=== PATIENT | female | born 1990 | race Caucasian/White ===

== ENCOUNTER 2018-07-25 20:56 | Emergency (ER) | payer OTHER ==
[2018-07-25] MEDS ORDERED: [UNRECOGNIZED DRUG - CODE] MC (23:15)
[2018-07-25] MEDS ORDERED: FOLI1TAB24 PO (23:15)
[2018-07-26] MEDS ORDERED: CEPH-507 PO (00:56)
== END 2018-07-25 21:56 | disposition left against medical advice (07) ==
LOC: ER FS 20:58
DX: O26.899 Other specified pregnancy related conditions, unspecified trimester (principal); R10.9 Unspecified abdominal pain; R11.0 Nausea; Z3A.00 Weeks of gestation of pregnancy not specified

== ENCOUNTER 2018-07-25 22:36 | Emergency (ER) | payer BC, OTHER ==
[~2018-07-25] VITALS: Ht 162.6 cm; Wt 68.0 kg
--- NOTE | 2018-07-25 23:10 | NUR ---
pt informed ultrasound is not available at this time.
[2018-07-25] MEDS ORDERED: FOLI1TAB24 PO (23:15)
[2018-07-25] MEDS ORDERED: [UNRECOGNIZED DRUG - CODE] MC (23:15)
[2018-07-25 23:35] LABS: BASOPHILS % (AUTO) 0 % (0-10); EOSINOPHILS # (AUTO) 0.1 10^3/uL (0.0-0.3); EOSINOPHILS % (AUTO) 1 % (0-10); HEMATOCRIT 38 % (35-52); HEMOGLOBIN 13.3 G/DL (11.5-16.0); LYMPHOCYTES # (AUTO) 3.9 X 10^3 (1.0-4.0); LYMPHOCYTES % (AUTO) 34 % (12-44); MEAN CORPUSCULAR HEMOGLOBIN 32 PG (25-34); MEAN CORPUSCULAR HGB CONC 35 G/DL (32-36); MEAN CORPUSCULAR VOLUME 90 FL (80-99); MEAN PLATELET VOLUME 9.8 FL (7.4-10.4); MONOCYTES # (AUTO) 0.5 X 10^3 (0.0-1.0); MONOCYTES % (AUTO) 5 % (0-12); NEUTROPHILS % (AUTO) 60 % (42-75); PLATELET COUNT 336 10^3/uL (130-400); RED CELL DISTRIBUTION WIDTH 11.9 % (10.0-14.5); WHITE BLOOD COUNT 11.6 10^3/uL (4.3-11.0)
[2018-07-26 00:12] LABS: COLOR,URINE YELLOW
[2018-07-26 00:13] LABS: BACTERIA,URINE LARGE /HPF; BILIRUBIN,URINE NEGATIVE (NEGATIVE); CLARITY,URINE CLEAR; GLUCOSE, URINE (UA) NEGATIVE (NEGATIVE); KETONES,URINE NEGATIVE (NEGATIVE); LEUKOCYTE ESTERASE ,URINE 2+ (NEGATIVE); NITRITE,URINE NEGATIVE (NEGATIVE); PH,URINE 6 (5-9); PROTEIN,URINE NEGATIVE (NEGATIVE); SQUAMOUS EPITHELIAL CELL,UR 0-2 /HPF; UROBILINOGEN,URINE NORMAL (NORMAL)
[2018-07-26] MEDS ORDERED: CEPHALEXIN 250 MG (KEFLEX) CAP PO ONE (00:45)
--- NOTE | 2018-07-26 00:51 | ED GU-Female ---
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 approx. 6 weeks Nursing Sepsis Screen: No Definite Risk Source: patient Exam Limitations: no limitations History of Present Illness Date Seen by Provider: Jul 26, 2018 Time Seen by Provider: 23:08 Initial Comments This 28-year-old at approximately 6 weeks gestational age with an LMP of June 19 presents to the emergency room with pelvic pain and cramping for 3 days. She denies any vaginal bleeding. She spoke with a nurse from Dr. Urbano' s office who recommended she be seen in the ER. She is presently on progesterone and folic acid for the past 3 days because of history of multiple miscarriages. She is afebrile. She denies any odorous or colored vaginal discharge. Allergies and Home Medications Allergies Uncoded Allergies: tape (Adverse Reaction, Unknown, 07/25/18) Home Medications Cephalexin 500 Mg Capsule, 500 MG PO TID Prescribed by: NABIL WELCH on 07/26/18 0056 Patient Home Medication List Home Medication List Reviewed: Yes Review of Systems Review of Systems Constitutional: no symptoms reported EENTM: no symptoms reported Respiratory: no symptoms reported Cardiovascular: no symptoms reported Gastrointestinal: see HPI Genitourinary: see HPI : Yes LMP: Jun 19, 2018 Musculoskeletal: no symptoms reported Skin: no symptoms reported Psychiatric/Neurological: No Symptoms Reported Endocrine: No Symptoms Reported Past Dwerbzi-Jgqlcd-Ueiern Hx Past Med/Social Hx: Reviewed Nursing Past Med/Soc Hx Patient Social History Alcohol Use: Denies Use Recreational Drug Use: No Smoking Status: Never a Smoker 2nd Hand Smoke Exposure: No Recent Foreign Travel: No Contact w/Someone Who Travel: No Recent Infectious Disease Expo: No Recent Hopitalizations: No Immunizations Up To Date Tetanus Booster (TDap): Unknown PED Vaccines UTD: Yes Seasonal Allergies Seasonal Allergies: No Past Medical History Surgeries: Yes (shoulder, d&c) Orthopedic Respiratory: No Cardiac: No Neurological: No : Yes Last Menstrual Period: Jun 19, 2018 Hx : 4 Hx Para: 0 Reproductive Disorders: Yes (multiple miscarriages) Genitourinary: No Gastrointestinal: No Musculoskeletal: No Endocrine: No HEENT: No Cancer: No Psychosocial: No Integumentary: No Blood Disorders: No Physical Exam Vital Signs Vital Signs - First Documented 07/25/18 23:06 Temp 97.6 Pulse 85 Resp 18 B/P (MAP) 153/97 (115) Pulse Ox 98 O2 Delivery Room Air Capillary Refill : Less Than 3 Seconds Height, Weight, BMI Height: 5'4.00" Weight: 150lbs. oz. 68.259420da; BMI Method:Stated General Appearance: WD/WN, no apparent distress, other (tearful) HEENT: PERRL/EOMI, normal ENT inspection Neck: normal inspection Cardiovascular: regular rate, rhythm, no edema, no murmur Respiratory: lungs clear, normal breath sounds, no respiratory distress, no accessory muscle use Gastrointestinal: normal bowel sounds, soft, tenderness (suprapubic) Back: no CVA tenderness Extremities: normal inspection, no pedal edema Neurologic/Psychiatric: sorter pricer II-XII nml as tested, no motor/sensory deficits, alert, oriented x 3, other (tearful) Skin: normal color, warm/dry Progress/Results/Core Measures Suspected Sepsis Recent Fever Within 48 Hours: No Infection Criteria Present: None New/Unexplained Altered Menta: No Sepsis Screen: No Definite Risk SIRS Temperature:97.6 Pulse: 85 Respiratory Rate: 18 Laboratory Tests 07/25/18 23:12: White Blood Count 11.6H Blood Pressure 153 /97 Mean: 115 Laboratory Tests 07/25/18 23:12: Platelet Count 336 Results/Orders Lab Results Laboratory Tests Test 07/25/18 23:12 Range/Units White Blood Count 11.6 H 4.3-11.0 10^3/uL Red Blood Count 4.22 L 4.35-5.85 10^6/uL Hemoglobin 13.3 11.5-16.0 G/DL Hematocrit 38 35-52 % Mean Corpuscular Volume 90 80-99 FL Mean Corpuscular Hemoglobin 32 25-34 PG Mean Corpuscular Hemoglobin Concent 35 32-36 G/DL Red Cell Distribution Width 11.9 10.0-14.5 % Platelet Count 336 130-400 10^3/uL Mean Platelet Volume 9.8 7.4-10.4 FL Neutrophils (%) (Auto) 60 42-75 % Lymphocytes (%) (Auto) 34 12-44 % Monocytes (%) (Auto) 5 0-12 % Eosinophils (%) (Auto) 1 0-10 % Basophils (%) (Auto) 0 0-10 % Neutrophils # (Auto) 7.0 1.8-7.8 X 10^3 Lymphocytes # (Auto) 3.9 1.0-4.0 X 10^3 Monocytes # (Auto) 0.5 0.0-1.0 X 10^3 Eosinophils # (Auto) 0.1 0.0-0.3 10^3/uL Basophils # (Auto) 0.0 0.0-0.1 10^3/uL Urine Color YELLOW Urine Clarity CLEAR Urine pH 6 5-9 Urine Specific [place] 1.025 H 1.016-1.022 Urine Protein NEGATIVE NEGATIVE Urine Glucose (UA) NEGATIVE NEGATIVE Urine Ketones NEGATIVE NEGATIVE Urine Nitrite NEGATIVE NEGATIVE Urine Bilirubin NEGATIVE NEGATIVE Urine Urobilinogen NORMAL NORMAL MG/DL Urine Leukocyte Esterase 2+ H NEGATIVE Urine RBC (Auto) 1+ H NEGATIVE Urine RBC 2-5 H /HPF Urine WBC 10-25 H /HPF Urine Squamous Epithelial Cells 0-2 /HPF Urine Crystals NONE /LPF Urine Bacteria LARGE H /HPF Urine Casts NONE /LPF Urine Mucus NEGATIVE /LPF Urine Culture Indicated YES Human Chorionic Gonadotropin, Quant 661 H <5 MIU/ML My Orders Orders - NABIL CHAUDHRY MD Cbc With Automated Diff (07/25/18 23:08) Hcg,Quantitative (07/25/18 23:08) Ua Culture If Indicated (07/25/18 23:08) Abo Rh Type (07/25/18 23:08) Urine Culture (07/25/18 23:12) Cephalexin Capsule (Keflex Capsule) (07/26/18 00:45) Acetaminophen Tablet (Tylenol Tablet) (07/26/18 01:00) Medications Given in ED Current Medications Medications Dose Ordered Sig/Shelby Route Start Time Stop Time Status Last Admin Dose Admin Acetaminophen 1,000 mg ONCE ONCE PO 07/26/18 01:00 07/26/18 01:01 DC 07/26/18 00:58 1,000 MG Cephalexin HCl 500 mg ONCE ONCE PO 07/26/18 00:45 07/26/18 00:46 DC 07/26/18 00:46 500 MG Vital Signs/I&O 07/25/18 07/26/18 23:06 01:13 Temp 97.6 97.6 Pulse 85 85 Resp 18 16 B/P (MAP) 153/97 (115) 131/86 (101) Pulse Ox 98 98 O2 Delivery Room Air Room Air Capillary Refill : Less Than 3 Seconds Blood Pressure Mean: 115 Progress Note : Progress Note HCG level was appropriate for gestational age. Prescription order was provided for ultrasound to confirm intrauterine . Urinary tract infection was suspected by UA. A dose of Keflex was given in the ER with a prescription to follow. Departure Impression Primary Impression: Pelvic pain affecting Qualified Codes: O26.891 - Other specified related conditions, first trimester; R10.2 - Pelvic and perineal pain Additional Impression: Urinary tract infection Qualified Codes: N39.0 - Urinary tract infection, site not specified Disposition: HOME, SELF-CARE Condition: Improved Departure-Patient Inst. Decision time for Depature: 00:40 Referrals: NO,LOCAL PHYSICIAN (PCP) Primary Care Physician Patient Instructions: Urinary Tract Infection, Adult (DC) Add. Discharge Instructions: Drink plenty of clear liquids. Complete your antibiotic as prescribed. A urine culture should be available in 48-72 hours. You can follow-up with Dr. Urbano to ensure you to our taking an antibiotic appropriate for the culture results. Follow-up with Dr. Urbano as soon as possible. You may take Tylenol (acetaminophen) up to 1000 mg every 6 hours as needed for pain. Benadryl (diphenhydramine) 25 mg every 4 hours may also help with cramping and help you sleep. Return to care if you have worsening symptoms. Present your ultrasound order to [facility] tomorrow after 7:30 in the morning to have a stat ultrasound performed. Alternatively, you may call for [facility] to arrange ultrasound there. All discharge instructions reviewed with patient and/or family. Voiced understanding. Scripts Cephalexin (Keflex) 500 Mg Capsule 500 MG PO TID, #15 CAP Prov: NABIL CHAUDHRY MD 07/26/18 Copy Copies To 1: ALVA URBANO MD, JOSHUA T MD Jul 26, 2018 00:51
[2018-07-26] MEDS ORDERED: CEPH-507 PO (00:56)
[2018-07-26] MEDS ORDERED: ACETAMINOPHEN 500 MG TAB (TYLENOL) PO ONE (01:00)
[2018-07-26 01:13] VITALS: BP 131/86
== END 2018-07-26 01:13 | disposition home or self-care (01) ==
LOC: EDUNIT# 22:36 → ER 22:38
DX: O23.41 Unspecified infection of urinary tract in pregnancy, first trimester (principal); Z3A.01 Less than 8 weeks gestation of pregnancy; Z91.048 Other nonmedicinal substance allergy status; Z87.59 Personal history of other complications of pregnancy, childbirth and the puerperium
CPT/HCPCS: 36415; 81000; 84702; 84703; 85025; 86900; 86901; 87077; 87088

== ENCOUNTER → 2018-07-26 | Outpatient (CLI) | payer BC ==
[~2018-07-26] MED LIST: CEPH-507 PO; FOLI1TAB24 PO; [UNRECOGNIZED DRUG - CODE] MC
--- NOTE | 2018-07-26 16:34 | Diagnostic Imaging Report ---
PATIENT HISTORY: PELVIC PAIN IN . TECHNIQUE: Transabdominal and transvaginal ultrasound of the gravid uterus. COMPARISON: None. FINDINGS: The uterus demonstrates a markedly thickened endometrium measuring 22 mm, with multiple small pockets of fluid. The right ovary measures 3.2 x 2.8 x 2.2 cm in size and demonstrates normal vascular flow. The structure thought to represent the left ovary measures 1.8 x 1.7 x 1.5 cm and demonstrates flow as well. There is a small hypoechoic structure on the right ovary, which could represent a follicle or corpus luteum. There is trace free fluid in the pelvis. IMPRESSION: 1. Thickened endometrium with multiple small pockets of fluid. A definite intrauterine gestation is not seen at this time. This could be due to early gestational age, however ectopic is in the differential as well. There is a hypoechoic structure at the right ovary with trace free fluid, which could represent a dominant follicle, corpus luteum, or ectopic . Recommend continued followup with serial beta hCG, and followup ultrasound if indicated. Dictated by: Dictated on workstation # [id number]
== END ==
LOC: RAD 15:16
PROVIDERS: ATTEND Family Medicine
DX: O26.891 Other specified pregnancy related conditions, first trimester (principal); R10.2 Pelvic and perineal pain; R93.89 Abnormal findings on diagnostic imaging of other specified body structures; Z3A.00 Weeks of gestation of pregnancy not specified
CPT/HCPCS: 76801; 76817

== ENCOUNTER → 2018-07-27 | Outpatient (CLI) | payer BC | LOC: LAB FS 16:27 | PROVIDERS: ATTEND Family Medicine | DX: O20.0 Threatened abortion (principal) | CPT/HCPCS: 36415; 84702 ==

== ENCOUNTER → 2018-07-30 | Outpatient (CLI) | payer BC | LOC: LAB FS 08:35 | PROVIDERS: ATTEND Family Medicine | DX: O20.0 Threatened abortion (principal) | CPT/HCPCS: 36415; 84702 ==

== ENCOUNTER → 2018-08-06 | Outpatient (CLI) | payer BC | LOC: LAB FS 09:32 | PROVIDERS: ATTEND Family Medicine | DX: Z87.59 Personal history of other complications of pregnancy, childbirth and the puerperium (principal) | CPT/HCPCS: 36415; 84702 ==

== ENCOUNTER 2018-08-10 02:06 | Emergency (ER) | payer OTHER, BC ==
[~2018-08-10] VITALS: Ht 162.6 cm; Wt 70.3 kg
--- NOTE | 2018-08-10 02:25 | NUR ---
Adeline Moctezuma Rn attempted to dopple heart tones without success.
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
[2018-08-10 02:58] LABS: BILIRUBIN,URINE NEGATIVE (NEGATIVE); CLARITY,URINE CLEAR; COLOR,URINE YELLOW; GLUCOSE, URINE (UA) NEGATIVE (NEGATIVE); KETONES,URINE NEGATIVE (NEGATIVE); LEUKOCYTE ESTERASE ,URINE NEGATIVE (NEGATIVE); NITRITE,URINE NEGATIVE (NEGATIVE); PROTEIN,URINE NEGATIVE (NEGATIVE); UROBILINOGEN,URINE 0.2 MG/DL (NORMAL)
[2018-08-10] MEDS ORDERED: CYCLOBENZAPRINE 10 MG (FLEXERIL) TAB PO STA (03:16)
[2018-08-10] MEDS ORDERED: SILVER SULFADIAZINE 50 GM CREAM TOP STA (03:19)
[2018-08-10] MEDS ORDERED: CYCLOBENZAPRINE 10 MG (FLEXERIL) TAB ONE (03:23)
[2018-08-10] MEDS ORDERED: SILVER SULFADIAZINE 50 GM CREAM ONE (03:24)
--- NOTE | 2018-08-10 03:40 | NUR ---
pt refused flexeril
[2018-08-10 05:05] VITALS: BP 152/68
== END 2018-08-10 05:03 | disposition home or self-care (01) ==
LOC: EDUNIT# 02:06 → ER FS 02:09
DX: O9A.211 Injury, poisoning and certain other consequences of external causes complicating pregnancy, first trimester (principal); S10.91XA Abrasion of unspecified part of neck, initial encounter; R40.2142 Coma scale, eyes open, spontaneous, at arrival to emergency department; R40.2252 Coma scale, best verbal response, oriented, at arrival to emergency department; R40.2362 Coma scale, best motor response, obeys commands, at arrival to emergency department; Z91.048 Other nonmedicinal substance allergy status; V40.5XXA Car driver injured in collision with pedestrian or animal in traffic accident, initial encounter
CPT/HCPCS: 81000; 84702; 99282

== ENCOUNTER 2018-10-18 19:09 | Emergency (ER) | payer BC ==
[~2018-10-18] VITALS: Ht 162.6 cm; Wt 75.7 kg
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
[2018-10-18 20:10] LABS: BASOPHILS % (AUTO) 0 % (0-10); EOSINOPHILS # (AUTO) 0.1 10^3/uL (0.0-0.3); EOSINOPHILS % (AUTO) 1 % (0-10); HEMATOCRIT 34 % (35-52); HEMOGLOBIN 12.1 G/DL (11.5-16.0); LYMPHOCYTES % (AUTO) 23 % (12-44); MEAN CORPUSCULAR HEMOGLOBIN 32 PG (25-34); MEAN CORPUSCULAR HGB CONC 35 G/DL (32-36); MEAN CORPUSCULAR VOLUME 91 FL (80-99); MEAN PLATELET VOLUME 9.8 FL (7.4-10.4); MONOCYTES # (AUTO) 0.7 X 10^3 (0.0-1.0); MONOCYTES % (AUTO) 5 % (0-12); NEUTROPHILS # (AUTO) 9.1 X 10^3 (1.8-7.8); NEUTROPHILS % (AUTO) 70 % (42-75); PLATELET COUNT 292 10^3/uL (130-400); RED CELL DISTRIBUTION WIDTH 12.4 % (10.0-14.5); WHITE BLOOD COUNT 12.9 10^3/uL (4.3-11.0)
--- NOTE | 2018-10-18 20:11 | ED GU-Female ---
General Chief Complaint: Abdominal/GI Problems Stated Complaint: ABD CRAMPING,17 WEEKS PREG Nursing Triage Note: PT IS 17 WEEKS . PT STATES SHE HAS ABD PAIN UPPER AND LOWER QUAD AND TO BACK. PT HAS HAD 3 MISCARRIAGES IN THE LAST YEAR. PT DENIES VAG DISCHARGE OR SYMPTOMS. PT STATES NAUSEA TODAY. PT DENIES V/D/FEVER . PT STATES SHE HAD A LONG DAY TODAY AND DID NOT DRINK MUCH WATER USUAL. Nursing Sepsis Screen: No Definite Risk Source: patient Exam Limitations: no limitations History of Present Illness Date Seen by Provider: Oct 18, 2018 Time Seen by Provider: 19:45 Initial Comments PT ARRIVES VIA POV FROM HOME WITH MOM PT STATES SHE IS 17 WEEKS WITH LMP 06/16/18 PT IS AB 3---THIS IS 4TH IN 1 1/2 YEARS, ALL PRIOR MISCARRIAGES AT 7 WEEKS GESTATION OR LESS. LAST MISCARRIAGE WAS 05/[address] URBANO 1 WEEK AGO FOR ROUTINE OB EXAM, AND HAD ULTRASOUND WHICH WAS NORMAL PER PT. BEGAN HAVING LOWER ABDOMINAL CRAMPING AND LOWER BACK DISCOMFORT AROUND 1500 TODAY NO VAGINAL BLEEDING OR DISCHARGE SLIGHT NAUSEA, NO VOMITING NO FEVER NO URINARY SYMPTOMS C/O HEADACHES WITH . BP NORMALLY 120/70 PCP: DR. URBANO Allergies and Home Medications Allergies Uncoded Allergies: tape (Adverse Reaction, Unknown, 07/25/18) Home Medications Cephalexin 500 Mg Capsule, 500 MG PO TID Prescribed by: NABIL WELCH on 07/26/18 0056 Patient Home Medication List Home Medication List Reviewed: Yes Review of Systems Review of Systems Constitutional: no symptoms reported; No fever Respiratory: no symptoms reported Cardiovascular: no symptoms reported Gastrointestinal: see HPI, abdominal pain; No constipation, No diarrhea; nausea; No vomiting Genitourinary: see HPI; denies dysuria; flank pain : Yes LMP: Jun 16, 2018 Musculoskeletal: see HPI, back pain Skin: no symptoms reported Psychiatric/Neurological: No Symptoms Reported Endocrine: No Symptoms Reported Hematologic/Lymphatic: No Symptoms Reported Past Kiyyitz-Iwoyps-Smissm Hx Patient Social History Alcohol Use: Denies Use Recreational Drug Use: No Smoking Status: Never a Smoker 2nd Hand Smoke Exposure: No Recent Foreign Travel: No Contact w/Someone Who Travel: No Recent Infectious Disease Expo: No Recent Hopitalizations: No Physical Abuse: No Sexual Abuse: No Mistreated: No Fear: No Immunizations Up To Date Tetanus Booster (TDap): Unknown PED Vaccines UTD: Yes Seasonal Allergies Seasonal Allergies: No Past Medical History Surgeries: Yes (D&C X 1; RIGHT SHOULDER SURGERY X 2) Orthopedic Respiratory: No Cardiac: No Neurological: No : Yes Hx : 4 Hx Para: 0 Hx Total # of Abortions (Sp): 3 (D&C X 1) Reproductive Disorders: Yes (multiple miscarriages) Genitourinary: No Gastrointestinal: No Musculoskeletal: Yes (RIGHT SHOULDER SURGERY X 2 FOR CHRONIC SUBLUXATIONS) Endocrine: No HEENT: No Cancer: No Psychosocial: Yes Anxiety, Depression Integumentary: No Blood Disorders: No Physical Exam Vital Signs Vital Signs - First Documented 10/18/18 19:21 Temp 97.6 Pulse 93 Resp 18 B/P (MAP) 184/94 (124) Pulse Ox 99 O2 Delivery Room Air Capillary Refill : Less Than 3 Seconds Height, Weight, BMI Height: 5'4.00" Weight: 167lbs. oz. 75.476196nq; BMI Method:Stated General Appearance: WD/WN, no apparent distress Cardiovascular: normal peripheral pulses, regular rate, rhythm, no edema, no JVD, no murmur Respiratory: normal breath sounds, no respiratory distress, no accessory muscle use Gastrointestinal: normal bowel sounds, soft, no pulsatile mass, tenderness (MILD SUPRAPUBIC TENDERNESS. ), other (FUNDUS 3 FB'S BELOW UMBILICUS) Back: normal inspection Extremities: normal inspection, no pedal edema, no calf tenderness, normal capillary refill Neurologic/Psychiatric: luggage maker II-XII nml as tested, no motor/sensory deficits, alert, normal mood/affect, oriented x 3 Skin: normal color, warm/dry Progress/Results/Core Measures Suspected Sepsis Recent Fever Within 48 Hours: No Infection Criteria Present: None New/Unexplained Altered Menta: No Sepsis Screen: No Definite Risk SIRS Temperature:97.6 Pulse: 93 Respiratory Rate: 18 Laboratory Tests 10/18/18 20:00: White Blood Count 12.9H Blood Pressure 184 /94 Mean: 124 Laboratory Tests 10/18/18 20:00: Creatinine 0.59L, Platelet Count 292, Total Bilirubin 0.2 Results/Orders Lab Results Laboratory Tests Test 10/18/18 19:12 10/18/18 20:00 Range/Units Urine Color YELLOW Urine Clarity CLEAR Urine pH 7 5-9 Urine Specific [place] 1.010 L 1.016-1.022 Urine Protein NEGATIVE NEGATIVE Urine Glucose (UA) NEGATIVE NEGATIVE Urine Ketones NEGATIVE NEGATIVE Urine Nitrite NEGATIVE NEGATIVE Urine Bilirubin NEGATIVE NEGATIVE Urine Urobilinogen NORMAL NORMAL MG/DL Urine Leukocyte Esterase 2+ H NEGATIVE Urine RBC (Auto) NEGATIVE NEGATIVE Urine RBC NONE /HPF Urine WBC 0-2 /HPF Urine Squamous Epithelial Cells 2-5 /HPF Urine Crystals NONE /LPF Urine Bacteria TRACE /HPF Urine Casts NONE /LPF Urine Mucus NEGATIVE /LPF Urine Culture Indicated NO White Blood Count 12.9 H 4.3-11.0 10^3/uL Red Blood Count 3.78 L 4.35-5.85 10^6/uL Hemoglobin 12.1 11.5-16.0 G/DL Hematocrit 34 L 35-52 % Mean Corpuscular Volume 91 80-99 FL Mean Corpuscular Hemoglobin 32 25-34 PG Mean Corpuscular Hemoglobin Concent 35 32-36 G/DL Red Cell Distribution Width 12.4 10.0-14.5 % Platelet Count 292 130-400 10^3/uL Mean Platelet Volume 9.8 7.4-10.4 FL Neutrophils (%) (Auto) 70 42-75 % Lymphocytes (%) (Auto) 23 12-44 % Monocytes (%) (Auto) 5 0-12 % Eosinophils (%) (Auto) 1 0-10 % Basophils (%) (Auto) 0 0-10 % Neutrophils # (Auto) 9.1 H 1.8-7.8 X 10^3 Lymphocytes # (Auto) 3.0 1.0-4.0 X 10^3 Monocytes # (Auto) 0.7 0.0-1.0 X 10^3 Eosinophils # (Auto) 0.1 0.0-0.3 10^3/uL Basophils # (Auto) 0.0 0.0-0.1 10^3/uL Sodium Level 137 135-145 MMOL/L Potassium Level 3.7 3.6-5.0 MMOL/L Chloride Level 107 98-107 MMOL/L Carbon Dioxide Level 22 21-32 MMOL/L Anion Gap 8 5-14 MMOL/L Blood Urea Nitrogen 7 7-18 MG/DL Creatinine 0.59 L 0.60-1.30 MG/DL Estimat Glomerular Filtration Rate > 60 BUN/Creatinine Ratio 12 Glucose Level 81 70-105 MG/DL Calcium Level 9.3 8.5-10.1 MG/DL Corrected Calcium 9.5 8.5-10.1 MG/DL Total Bilirubin 0.2 0.1-1.0 MG/DL Aspartate Amino Transf (AST/SGOT) 17 5-34 U/L Alanine Aminotransferase (ALT/SGPT) 15 0-55 U/L Alkaline Phosphatase 53 40-136 U/L Total Protein 6.6 6.4-8.2 GM/DL Albumin 3.7 3.2-4.5 GM/DL Human Chorionic Gonadotropin, Quant 96538 H <5 MIU/ML My Orders Orders - COURTNEY LA DO Heart Tones (10/18/18 19:38) Straight Cath For Spec.-Adult (10/18/18 19:38) Hcg,Quantitative (10/18/18 19:38) Ua Culture If Indicated (10/18/18 19:38) Cbc With Automated Diff (10/18/18 19:38) Comprehensive Metabolic Panel (10/18/18 19:38) Vital Signs/I&O 10/18/18 19:21 Temp 97.6 Pulse 93 Resp 18 B/P (MAP) 184/94 (124) Pulse Ox 99 O2 Delivery Room Air Capillary Refill : Less Than 3 Seconds Blood Pressure Mean: 124 Progress Note : Progress Note PAIN/CRAMPING SUBSIDED AFTER LAYING DOWN HERE IN ER, AND SHORTLY AFTER FHT'S WERE HEARD. FHR 140'S PT LATER STATES THAT SHE HAS BEEN VERY ACTIVE TODAY AND ON HER FEET ALL DAY. NO ULTRASOUND AVAILABLE HERE AT THIS TIME PT ADVISED THAT IF SYMPTOMS WORSEN OR IF SHE DEVELOPS BLEEDING, SHE SHOULD GO TO NEAREST FACILITY THAT HAS AFTER-HOURS ULTRASOUND CAPABILITIES, OR RETURN HERE IF SEVERE Departure Impression Primary Impression: CRAMPING IN SECOND TRIMESTER Disposition: 01 HOME, SELF-CARE Condition: Improved Departure-Patient Inst. Referrals: ALVA URBANO MD (PCP/Family) Primary Care Physician Patient Instructions: Activity During , How to Adapt to Physical Changes During , - The Fourth Month Add. Discharge Instructions: INCREASE YOUR FLUID INTAKE--NO COFFEE, POP OR TEA TYLENOL NEEDED FOR PAIN FOLLOW UP WITH DR. URBANO THIS WEEK FOR FURTHER CARE, RETURN TO ER IF SYMPTOMS WORSEN All discharge instructions reviewed with patient and/or family. Voiced understanding. COURTNEY LA DO Oct 18, 2018 20:11
[2018-10-18 20:24] LABS: ALANINE AMINOTRANSFERASE 15 U/L (0-55); ALBUMIN 3.7 GM/DL (3.2-4.5); ALKALINE PHOSPHATASE 53 U/L (40-136); BILIRUBIN,TOTAL 0.2 MG/DL (0.1-1.0); BUN/CREATININE RATIO 12; CALCIUM 9.3 MG/DL (8.5-10.1); CARBON DIOXIDE 22 MMOL/L (21-32); CHLORIDE 107 MMOL/L (98-107); CREATININE SERUM 0.59 MG/DL (0.60-1.30); GFR ESTIMATED > 60; GLUCOSE 81 MG/DL (70-105); POTASSIUM 3.7 MMOL/L (3.6-5.0); SODIUM 137 MMOL/L (135-145); TOTAL PROTEIN 6.6 GM/DL (6.4-8.2)
[2018-10-18 20:43] LABS: BILIRUBIN,URINE NEGATIVE (NEGATIVE); COLOR,URINE YELLOW; GLUCOSE, URINE (UA) NEGATIVE (NEGATIVE); KETONES,URINE NEGATIVE (NEGATIVE); LEUKOCYTE ESTERASE ,URINE 2+ (NEGATIVE); NITRITE,URINE NEGATIVE (NEGATIVE); PH,URINE 7 (5-9); PROTEIN,URINE NEGATIVE (NEGATIVE); UROBILINOGEN,URINE NORMAL (NORMAL)
[2018-10-18 20:49] LABS: CLARITY,URINE CLEAR
[2018-10-18 20:50] LABS: WBC,URINE 0-2 /HPF
[2018-10-18 20:51] LABS: BACTERIA,URINE TRACE /HPF
[2018-10-18 21:07] VITALS: BP 184/94
== END 2018-10-18 21:07 | disposition home or self-care (01) ==
LOC: EDUNIT# 19:09 → ER 19:10
DX: O26.892 Other specified pregnancy related conditions, second trimester (principal); R10.30 Lower abdominal pain, unspecified; O99.342 Other mental disorders complicating pregnancy, second trimester; F41.9 Anxiety disorder, unspecified; F32.9 Major depressive disorder, single episode, unspecified; Z3A.17 17 weeks gestation of pregnancy; Z87.59 Personal history of other complications of pregnancy, childbirth and the puerperium; Z91.048 Other nonmedicinal substance allergy status; Z98.890 Other specified postprocedural states
CPT/HCPCS: 36415; 80053; 81000; 84702; 85025

== ENCOUNTER 2019-02-13 22:48 | Outpatient (CLI) | payer BC ==
[~2019-02-13] VITALS: Ht 162.6 cm; Wt 81.8 kg
[2019-02-13 22:50] VITALS: BP 137/77
--- NOTE | 2019-02-13 22:50 | NUR ---
KALA LUNA , presented to unit via from ED, accompanied by So, with c/o CONTRACTIONS. KALA LUNA weighed, gowned, voided, and to bed. EFHM and TOCO applied, VS taken. KALA LUNA oriented to bed controls, call light, TV, heat, and A/C controls.
[2019-02-13 23:10] LABS: BILIRUBIN,URINE NEGATIVE (NEGATIVE); CLARITY,URINE SLIGHTLY CLOUDY; COLOR,URINE YELLOW; GLUCOSE, URINE (UA) NEGATIVE (NEGATIVE); KETONES,URINE 3+ (NEGATIVE); LEUKOCYTE ESTERASE ,URINE 2+ (NEGATIVE); NITRITE,URINE NEGATIVE (NEGATIVE); PH,URINE 7 (5-9); PROTEIN,URINE NEGATIVE (NEGATIVE); UROBILINOGEN,URINE NORMAL (NORMAL)
[2019-02-13 23:22] LABS: BACTERIA,URINE FEW /HPF; WBC,URINE 25-50 /HPF
[2019-02-13] MEDS ORDERED: NITR-65 PO (23:35)
--- NOTE | 2019-02-14 08:02 | Physician Query-Final Dx ---
KAREN WILLSON 02/14/19 0802: Clinic Account Progress/Dx Physician Query: Please give diagnosis Please include # weeks gestation Date of Service Feb 13, 2019 at 22:48 GI PAVON DO 02/14/19 1128: Clinic Account Progress/Dx DIAGNOSIS: Diagnosis 33 week gestation abdominal pain KAREN WILLSON Feb 14, 2019 08:02 GI PAVON DO Feb 14, 2019 11:28
== END 2019-02-13 23:45 | disposition home or self-care (01) ==
LOC: WSo 22:48 → LDRP 22:50 → WSo 23:45
PROVIDERS: ATTEND Family Medicine
DX: O26.893 Other specified pregnancy related conditions, third trimester (principal); R10.9 Unspecified abdominal pain; Z3A.33 33 weeks gestation of pregnancy
CPT/HCPCS: 81000; 87088; 99213

== ENCOUNTER → 2019-02-25 | Outpatient (CLI) | payer BC ==
[~2019-02-25] MED LIST changes: +NITR-65 PO
[2019-02-25 14:19] LABS: HEMATOCRIT 36 % (35-52); LYMPHOCYTES % (AUTO) 11 % (12-44); MEAN CORPUSCULAR HEMOGLOBIN 30 PG (25-34); MEAN CORPUSCULAR HGB CONC 34 G/DL (32-36); MEAN CORPUSCULAR VOLUME 89 FL (80-99); MEAN PLATELET VOLUME 10.3 FL (7.4-10.4); NEUTROPHILS % (AUTO) 83 % (42-75); PLATELET COUNT 311 10^3/uL (130-400); RED CELL DISTRIBUTION WIDTH 12.2 % (10.0-14.5)
[2019-02-25 14:20] LABS: BASOPHILS % (AUTO) 0 % (0-10); EOSINOPHILS % (AUTO) 0 % (0-10); LYMPHOCYTES # (AUTO) 1.3 X 10^3 (1.0-4.0); MONOCYTES # (AUTO) 0.6 X 10^3 (0.0-1.0); MONOCYTES % (AUTO) 5 % (0-12)
[2019-02-25 14:50] LABS: BUN/CREATININE RATIO 9; CALCIUM 9.1 MG/DL (8.5-10.1); CARBON DIOXIDE 19 MMOL/L (21-32); CHLORIDE 105 MMOL/L (98-107); CREATININE SERUM 0.56 MG/DL (0.60-1.30); GFR ESTIMATED > 60; GLUCOSE 81 MG/DL (70-105); SODIUM 137 MMOL/L (135-145)
[2019-02-25 14:51] LABS: ALANINE AMINOTRANSFERASE 9 U/L (0-55); ALBUMIN 3.2 GM/DL (3.2-4.5); ALKALINE PHOSPHATASE 153 U/L (40-136); BILIRUBIN,TOTAL 0.4 MG/DL (0.1-1.0); TOTAL PROTEIN 6.3 GM/DL (6.4-8.2)
[2019-02-26 15:09] LABS: URIC ACID 4.7 MG/DL (2.6-7.2)
== END ==
LOC: LAB FS 13:51
PROVIDERS: ATTEND Family Medicine
DX: O13.3 Gestational [pregnancy-induced] hypertension without significant proteinuria, third trimester (principal); Z3A.00 Weeks of gestation of pregnancy not specified
CPT/HCPCS: 36415; 80053; 82570; 83615; 84156; 84550; 85025

== ENCOUNTER 2019-02-27 11:04 | Outpatient (CLI) | payer BC ==
[~2019-02-27] VITALS: Ht 162.6 cm; Wt 85.5 kg
--- NOTE | 2019-02-27 11:04 | NUR ---
KALA LUNA presented to unit via AMBULATORY from HOME, accompanied by S/O, with c/o HIGH BP. KALA LUNA weighed, gowned, voided, and to bed. EFHM and TOCO applied, VS taken. KALA LUNA oriented to bed controls, call light, TV, heat, and A/C controls.
[2019-02-27 11:24] VITALS: BP 136/88
--- NOTE | 2019-02-27 11:28 | NUR ---
DR. URBANO NOTIFIED OF PT'S ARRIVAL, C/O, LATEST B/P. NEW ORDERS RECEIVED. PT HAD CALLED THE CLINIC TODAY AND WAS LATER CALLED BACK AND INFORMED TO COME OUT TO THE HOSPITAL TO BE SEEN.
[2019-02-27 11:45] VITALS: BP 136/84
[2019-02-27 11:46] VITALS: BP 136/84
[2019-02-27 12:12] VITALS: BP 125/75
[2019-02-27 12:42] VITALS: BP 123/74
--- NOTE | 2019-02-27 13:00 | NUR ---
KRISTIAN AND NANDO HERNDON.
--- NOTE | 2019-02-27 13:03 | NUR ---
DR. URBANO NOTIFIED OF LATEST B/P READINGS AND BPP RESULTS. NEW ORDERS RECEIVED.
--- NOTE | 2019-02-27 13:20 | NUR ---
DISCHARGE PAPERS PROVIDED AND REVIEWED WITH PT, PT VERBALIZES UNDERSTANDING. NO QUESTIONS VOICED. PAPER SIGNED. S/O AT THE BEDSIDE.
--- NOTE | 2019-02-27 13:22 | NUR ---
FRESH ICE WATER PROVIDED. PT DISCHARGED FROM [id number] TO PERSONAL AUTO VIA AMBULATORY IN STABLE CONDITION ACC BY S/O.
--- NOTE | 2019-02-27 15:02 | Diagnostic Imaging Report ---
INDICATION: Elevated blood pressure. FINDINGS: There is a single live fetus in a cephalic presentation. heart rate was recorded at 146 bpm. Placenta is anterior. Amniotic fluid index is 6.5 cm. Overall, biophysical profile score is 6 out of 8, with two-point deduction given for lack of breathing movements visualized. IMPRESSION: Biophysical profile score 6 out of 8. Dictated by: Dictated on workstation # [id number]
--- NOTE | 2019-02-28 08:04 | Physician Query-Final Dx ---
KAREN WILLSON 02/28/19 0804: Clinic Account Progress/Dx Physician Query: Please give diagnosis Please give # weeks gestation Date of Service Feb 27, 2019 at 11:04 ALVA URBANO MD 02/28/19 1337: Clinic Account Progress/Dx DIAGNOSIS: Diagnosis: (1) induced hypertension Qualifiers: Qualified Codes: O13.3 - Gestational [-induced] hypertension without significant proteinuria, third trimester Diagnosis PIH at 35 6/7 wga. KAREN WILLSON Feb 28, 2019 08:04 ALVA URBANO MD Feb 28, 2019 13:37
== END 2019-02-27 13:22 | disposition home or self-care (01) ==
LOC: LDRP 11:04 → WSo 11:04
PROVIDERS: ATTEND Family Medicine
DX: O13.3 Gestational [pregnancy-induced] hypertension without significant proteinuria, third trimester (principal); Z3A.35 35 weeks gestation of pregnancy
CPT/HCPCS: 76819; 99213

== ENCOUNTER 2019-03-04 20:00 | Outpatient (CLI) | payer BC ==
[~2019-03-04] VITALS: Ht 162.6 cm; Wt 85.2 kg
[2019-03-04] VITALS (13 sets, daily range): BP systolic 128–169; BP diastolic 68–101
--- NOTE | 2019-03-04 20:05 | NUR ---
KALA LUNA presented to unit via ambulatory from ED, accompanied by family with c/o ELEVATED BP. KALA LUNA weighed, gowned, voided, and to bed. EFHM and TOCO applied, VS taken. KALA LUNA oriented to bed controls, call light, TV, heat, and A/C controls.
[2019-03-04 20:34] LABS: BILIRUBIN,URINE NEGATIVE (NEGATIVE); CLARITY,URINE CLEAR; COLOR,URINE YELLOW; GLUCOSE, URINE (UA) NEGATIVE (NEGATIVE); KETONES,URINE NEGATIVE (NEGATIVE); LEUKOCYTE ESTERASE ,URINE 3+ (NEGATIVE); NITRITE,URINE NEGATIVE (NEGATIVE); PH,URINE 7 (5-9); PROTEIN,URINE 2+ (NEGATIVE)
[2019-03-04] MEDS ORDERED: PREN-53 PO (20:51)
[2019-03-04 21:19] LABS: BACTERIA,URINE FEW /HPF; RBC,URINE 0-2 /HPF; SQUAMOUS EPITHELIAL CELL,UR TNTC /HPF
[2019-03-04 22:20] LABS: BASOPHILS % (AUTO) 0 % (0-10); EOSINOPHILS # (AUTO) 0.1 10^3/uL (0.0-0.3); EOSINOPHILS % (AUTO) 1 % (0-10); HEMATOCRIT 36 % (35-52); HEMOGLOBIN 11.9 G/DL (11.5-16.0); LYMPHOCYTES # (AUTO) 2.7 X 10^3 (1.0-4.0); LYMPHOCYTES % (AUTO) 22 % (12-44); MEAN CORPUSCULAR HEMOGLOBIN 30 PG (25-34); MEAN CORPUSCULAR HGB CONC 33 G/DL (32-36); MEAN CORPUSCULAR VOLUME 88 FL (80-99); MEAN PLATELET VOLUME 10.4 FL (7.4-10.4); MONOCYTES # (AUTO) 0.7 X 10^3 (0.0-1.0); MONOCYTES % (AUTO) 6 % (0-12); NEUTROPHILS # (AUTO) 8.6 X 10^3 (1.8-7.8); NEUTROPHILS % (AUTO) 71 % (42-75); PLATELET COUNT 342 10^3/uL (130-400); RED CELL DISTRIBUTION WIDTH 12.4 % (10.0-14.5); WHITE BLOOD COUNT 12.1 10^3/uL (4.3-11.0)
[2019-03-04 22:42] LABS: ALANINE AMINOTRANSFERASE 10 U/L (0-55); ALBUMIN 3.1 GM/DL (3.2-4.5); ALKALINE PHOSPHATASE 171 U/L (40-136); BILIRUBIN,TOTAL 0.4 MG/DL (0.1-1.0); BUN/CREATININE RATIO 8; CALCIUM 8.8 MG/DL (8.5-10.1); CARBON DIOXIDE 19 MMOL/L (21-32); CHLORIDE 108 MMOL/L (98-107); GFR ESTIMATED > 60; GLUCOSE 74 MG/DL (70-105); POTASSIUM 3.6 MMOL/L (3.6-5.0); SODIUM 140 MMOL/L (135-145); TOTAL PROTEIN 6.1 GM/DL (6.4-8.2); URIC ACID 4.7 MG/DL (2.6-7.2)
[2019-03-04 23:13] LABS: BAND NEUTROPHILS 1 %; EOSINOPHILS % (MANUAL) 1 %; LYMPHOCYTES % (MANUAL) 23 %; MONOCYTES % (MANUAL) 4 %; NEUTROPHILS % (MANUAL) 71 %
[2019-03-04 23:14] LABS: RBC MORPH NORMAL
--- NOTE | 2019-03-04 23:21 | NUR ---
Dr. Coppola notified of lab results and BP trend. Orders received to keep pt. overnight as observation.
[2019-03-05] VITALS (15 sets, daily range): BP systolic 118–163; BP diastolic 70–97
--- NOTE | 2019-03-05 08:00 | NUR ---
A.M. ASSESSMENT. SEE LABOR FLOW SHEET.
[2019-03-05] MEDS ORDERED: ACETAMINOPHEN 500 MG TAB (TYLENOL) PO ONE (12:00)
--- NOTE | 2019-03-05 12:05 | NUR ---
TYLENOL 1000MG P.O. FOR C/O HEADACHE. PT'S MOM AT BEDSIDE. ANSWERING HER QUESTIONS R/T PT CARE. REASSURED THAT HAS ORDERED ALL THE TESTS AND F/U AND NO BP MEDS HAVE BEEN STARTED.
--- NOTE | 2019-03-05 12:17 | NUR ---
DR. GALAN NOTIFIED OF ALL BP'S TAKEN ON THIS SHIFT. PT HAS A BPP AND APPOINTMENT WITH DR. URBANO IN A.M.
--- NOTE | 2019-03-05 12:30 | NUR ---
TALKING WITH PT AND MOM ABOUT NEED FOR BEDREST AND NO WORK FOR REMAINDER OF . MOM STATES PT WILL PROBABLY NOT BE COMPLIANT. STATES PT'S S.O. HAS AN APPOINTMENT IN [place] TOMORROW. INFORMED PT OF NEED TO COMPLY WITH 'S ORDERS.
--- NOTE | 2019-03-05 12:45 | NUR ---
DISCHARGE INSTRUCTIONS REVIEWED WITH COPY TO PT. STATES UNDERSTANDING OF ALL INSTRUCTIONS AND NEED TO F/U TOMORROW SCHEDULED. INSTRUCTED ON FINISHING 24 HOUR URINE AND TAKING TO [facility] ED LAB AFTER 2014 WHEN DONE. JUGS PROVIDED AND LABELED. HAT GIVEN. STATES UNDERSTANDING.
--- NOTE | 2019-03-05 12:50 | NUR ---
DISMISSED FROM [facility] VIA W/C TO FAMILY CAR IN STABLE CONDITION ACC BY ANAND AND NERI RICARDO.
--- NOTE | 2019-03-05 22:54 | Short Stay Summary ---
HPI History of Present Illness: 28 yo G1 @ ~36 weeks that presented after she had home blood pressures in the 180s. No previous h/o HTN prior to . She has been working. Last blood pressure at clinic in the 130s and Dr Urbano had been watching pressures. Patient had normal BPP last week. Blood pressure much better since she arrived on the floor in the 110-130s. Patient stated that she did have VERDE and blurry vision that are not resolved. Denies any abdominal pain. She had not had any pre eclampsia labs prior to visit today. FHT normal and reactive. Source: patient Exam Limitations: no limitations Date seen by provider: Mar 05, 2019 Time Seen by Provider: 09:15 Attending Physician Peg Galan MD PCP Alva Urbano MD Consult Date of Admission Home Medications Home Medications Reviewed patient Home Medication Reconciliation performed by pharmacy medication reconciliations systems test technician and/or nursing. Patients Allergies have been reviewed. Allergies Uncoded Allergies: tape (Adverse Reaction, Unknown, 07/25/18) [id number]-Istlnr Hx Patient Social History Alcohol Use: Denies Use Recreational Drug Use: No Smoking Status: Never a Smoker 2nd Hand Smoke Exposure: No Recent Foreign Travel: No Contact w/other who traveled: No Recent Hopitalizations: No Recent Infectious Disease Expo: No Immunizations Up To Date Tetanus Booster (TDap): Less than 5yrs Date of Influenza Vaccine: Jan 31, 2019 Review of Systems ([facility]) Constitutional: no symptoms reported; No chills, No fever EENTM: blurred vision; No mouth pain, No nose congestion, No nose pain Respiratory: no symptoms reported; No cough, No dyspnea on exertion, No short of breath Cardiovascular: no symptoms reported; No chest pain, No edema, No palpitations Gastrointestinal: no symptoms reported; No abdominal pain, No constipation, No diarrhea, No loss of appetite, No nausea, No vomiting Genitourinary: no symptoms reported; No dysuria, No frequency : Yes Expected Date of Delivery: Mar 28, 2019 Musculoskeletal: no symptoms reported; No back pain, No joint pain, No muscle pain Skin: no symptoms reported; No lesions, No rash Psychiatric/Neurological: Headache; Denies Weakness Reviewed Test Results Reviewed Test Results Lab Laboratory Tests Test 03/04/19 20:15 03/04/19 20:50 03/04/19 22:05 Range/Units Urine Color YELLOW Urine Clarity CLEAR Urine pH 7 5-9 Urine Specific Wilson 1.010 L 1.016-1.022 Urine Protein 2+ H 30 H 6-12 MG/DL Urine Glucose (UA) NEGATIVE NEGATIVE Urine Ketones NEGATIVE NEGATIVE Urine Nitrite NEGATIVE NEGATIVE Urine Bilirubin NEGATIVE NEGATIVE Urine Urobilinogen NORMAL NORMAL MG/DL Urine Leukocyte Esterase 3+ H NEGATIVE Urine RBC (Auto) 1+ H NEGATIVE Urine RBC 0-2 /HPF Urine WBC 5-10 H /HPF Urine Squamous Epithelial Cells TNTC H /HPF Urine Crystals NONE /LPF Urine Bacteria FEW H /HPF Urine Casts NONE /LPF Urine Mucus NEGATIVE /LPF Urine Other /HPF Urine Culture Indicated YES Urine Creatinine 150 H 30-125 MG/DL Urine Protein/Creatinine Ratio 0.20 White Blood Count 12.1 H 4.3-11.0 10^3/uL Red Blood Count 4.04 L 4.35-5.85 10^6/uL Hemoglobin 11.9 11.5-16.0 G/DL Hematocrit 36 35-52 % Mean Corpuscular Volume 88 80-99 FL Mean Corpuscular Hemoglobin 30 25-34 PG Mean Corpuscular Hemoglobin Concent 33 32-36 G/DL Red Cell Distribution Width 12.4 10.0-14.5 % Platelet Count 342 130-400 10^3/uL Mean Platelet Volume 10.4 7.4-10.4 FL Neutrophils (%) (Auto) 71 42-75 % Lymphocytes (%) (Auto) 22 12-44 % Monocytes (%) (Auto) 6 0-12 % Eosinophils (%) (Auto) 1 0-10 % Basophils (%) (Auto) 0 0-10 % Neutrophils # (Auto) 8.6 H 1.8-7.8 X 10^3 Lymphocytes # (Auto) 2.7 1.0-4.0 X 10^3 Monocytes # (Auto) 0.7 0.0-1.0 X 10^3 Eosinophils # (Auto) 0.1 0.0-0.3 10^3/uL Basophils # (Auto) 0.0 0.0-0.1 10^3/uL Neutrophils % (Manual) 71 % Lymphocytes % (Manual) 23 % Monocytes % (Manual) 4 % Eosinophils % (Manual) 1 % Band Neutrophils 1 % Blood Morphology Comment NORMAL Sodium Level 140 135-145 MMOL/L Potassium Level 3.6 3.6-5.0 MMOL/L Chloride Level 108 H 98-107 MMOL/L Carbon Dioxide Level 19 L 21-32 MMOL/L Anion Gap 13 5-14 MMOL/L Blood Urea Nitrogen 5 L 7-18 MG/DL Creatinine 0.60 0.60-1.30 MG/DL Estimat Glomerular Filtration Rate > 60 BUN/Creatinine Ratio 8 Glucose Level 74 70-105 MG/DL Uric Acid 4.7 2.6-7.2 MG/DL Calcium Level 8.8 8.5-10.1 MG/DL Corrected Calcium 9.5 8.5-10.1 MG/DL Total Bilirubin 0.4 0.1-1.0 MG/DL Aspartate Amino Transf (AST/SGOT) 14 5-34 U/L Alanine Aminotransferase (ALT/SGPT) 10 0-55 U/L Alkaline Phosphatase 171 H 40-136 U/L Lactate Dehydrogenase 224 H 125-220 U/L Total Protein 6.1 L 6.4-8.2 GM/DL Albumin 3.1 L 3.2-4.5 GM/DL Physical Exam-([facility]C) Physical Exam Vital Signs VS - Last 72 Hours, by Label POS 03/04/19 03/04/19 03/04/19 03/04/19 20:15 20:35 20:50 21:05 Temp 36.3 Pulse 101 98 95 95 Resp 18 18 18 18 B/P (MAP) 142/97 (112) 140/94 (109) 151/90 (110) 169/95 (119) O2 Delivery Room Air Room Air Room Air Room Air 03/04/19 03/04/19 03/04/19 03/04/19 21:20 21:31 21:35 21:50 Temp 36.3 Pulse 80 101 82 90 Resp 18 18 18 18 B/P (MAP) 130/68 (88) 128/68 (88) 131/77 (95) O2 Delivery Room Air Room Air Room Air Room Air 03/04/19 03/04/19 03/04/19 03/04/19 22:05 22:20 22:35 23:05 Pulse 101 80 102 94 Resp 18 18 18 18 B/P (MAP) 155/101 (119) 142/82 (102) 140/84 (102) 128/76 (93) O2 Delivery Room Air Room Air Room Air Room Air 03/04/19 03/05/19 03/05/19 03/05/19 23:30 00:30 01:30 02:30 Temp 36.2 Pulse 100 101 100 79 Resp 18 16 16 16 B/P (MAP) 145/91 (109) 158/97 (117) 146/93 (110) 135/89 (104) O2 Delivery Room Air Room Air Room Air Room Air 03/05/19 03/05/19 03/05/19 03/05/19 03:30 04:30 05:30 06:30 Pulse 83 113 80 84 Resp 16 16 16 16 B/P (MAP) 129/73 (91) 130/87 (101) 118/76 (90) 132/79 (96) O2 Delivery Room Air Room Air Room Air Room Air 03/05/19 03/05/19 03/05/19 03/05/19 07:30 07:38 08:30 09:30 Temp 36.6 Pulse 84 80 81 75 Resp 18 20 B/P (MAP) 134/80 (98) 134/70 (91) 118/74 (89) 156/97 (116) Pulse Ox 98 O2 Delivery Room Air Room Air Room Air Room Air 03/05/19 03/05/19 03/05/19 03/05/19 09:45 10:30 11:20 12:50 Temp 36.4 36.4 Pulse 86 82 97 97 Resp 20 20 18 16 B/P (MAP) 163/77 (105) 135/89 (104) 120/77 (91) 120/77 Pulse Ox 99 O2 Delivery Room Air Room Air Room Air Room Air Capillary Refill : Less Than 3 Seconds General Appearance: WD/WN, no apparent distress HEENT: PERRL/EOMI Neck: non-tender, full range of motion Respiratory: chest non-tender, lungs clear, normal breath sounds, no respiratory distress, no accessory muscle use Cardiovascular: normal peripheral pulses, regular rate, rhythm, no edema, no murmur Gastrointestinal: normal bowel sounds, other (gravid uterus) Back: no CVA tenderness, no vertebral tenderness Extremities: no calf tenderness, normal capillary refill, pedal edema (trace bilaterally) Neurologic/Psychiatric: tearoom host II-XII nml as tested, no motor/sensory deficits, alert, normal mood/affect, oriented x 3 Skin: normal color, warm/dry Lymphatic: no adenopathy Short Stay Diagnosis Discharge Diagnosis-Short Stay Admission Diagnosis PIH Third Trimester 36 week gestation Final Discharge Diagnosis See Above Conclusion Plan 28 yo G1 @ 36 weeks that presented with elevated blood pressures. Dx with PIJunito. Will have close f.u with Dr Urbano. Patient placed on bed rest. Was the Problem List Reviewed?: Yes Copy Copies To 1: ALVA URBANO MD Assessment/Plan Assessment/Plan Admission Status: Observation (1) induced hypertension Status: Acute Assessment & Plan: - Pre eclamptic labs normal, ratio 0.25, blood pressures improved w/o meds, 24 hr urine started, f.u with Dr Urbano tomorrow with BPP Qualifiers: Qualified Codes: O13.3 - Gestational [-induced] hypertension without significant proteinuria, third trimester (2) Third trimester (3) 36 weeks gestation of PEG GALAN MD Mar 05, 2019 22:54 POS
== END 2019-03-05 12:50 | disposition home or self-care (01) ==
LOC: LDRP 20:00 → WSo 20:00
PROVIDERS: ATTEND Family Medicine
DX: O13.9 Gestational [pregnancy-induced] hypertension without significant proteinuria, unspecified trimester (principal); Z3A.00 Weeks of gestation of pregnancy not specified
CPT/HCPCS: 36415; 80053; 81000; 82570; 83615; 84156; 84550; 85007; 85027; 87077; 87088; 99211; G0378

== ENCOUNTER 2019-03-07 19:00 | Inpatient (IN) | payer BC ==
[~2019-03-07] VITALS: Ht 162.6 cm; Wt 84.8 kg
[~2019-03-07 19:00] MED LIST changes: +PREN-53 PO
[2019-03-07] MEDS ORDERED: BUSP10TA95 PO (20:04)
--- NOTE | 2019-03-07 20:07 | NUR ---
KALA LUNA presented to unit via ambulation from home, accompanied by family, for INDUCTION. KALA LUNA weighed, gowned, voided, and to bed. EFHM and TOCO applied, VS taken. KALA LUNA oriented to bed controls, call light, TV, heat, and A/C controls.
[2019-03-07] MEDS ORDERED: LACTATED RINGERS 1,000 ML IV SCH (20:13)
[2019-03-07] MEDS ORDERED: MINERAL OIL CONCENTRATE 99.9% 15 ML UDC TOP PRN (20:15)
[2019-03-07 20:20] VITALS: BP 139/89
[2019-03-07 20:55] LABS: BASOPHILS % (AUTO) 0 % (0-10); EOSINOPHILS # (AUTO) 0.1 10^3/uL (0.0-0.3); EOSINOPHILS % (AUTO) 1 % (0-10); HEMATOCRIT 35 % (35-52); HEMOGLOBIN 11.8 G/DL (11.5-16.0); LYMPHOCYTES # (AUTO) 2.5 X 10^3 (1.0-4.0); LYMPHOCYTES % (AUTO) 20 % (12-44); MEAN CORPUSCULAR HEMOGLOBIN 30 PG (25-34); MEAN CORPUSCULAR HGB CONC 34 G/DL (32-36); MEAN CORPUSCULAR VOLUME 88 FL (80-99); MEAN PLATELET VOLUME 10.7 FL (7.4-10.4); MONOCYTES # (AUTO) 0.7 X 10^3 (0.0-1.0); MONOCYTES % (AUTO) 6 % (0-12); NEUTROPHILS # (AUTO) 9.2 X 10^3 (1.8-7.8); NEUTROPHILS % (AUTO) 73 % (42-75); PLATELET COUNT 347 10^3/uL (130-400); RED CELL DISTRIBUTION WIDTH 12.7 % (10.0-14.5); WHITE BLOOD COUNT 12.6 10^3/uL (4.3-11.0)
[2019-03-07] MEDS: MISOPROSTOL 100 MCG (CYTOTEC) TAB PV SCH (21:12)
[2019-03-07 21:15] VITALS: BP 152/91
[2019-03-07] MEDS ORDERED: B12/1TAB PO (21:25)
[2019-03-07] MEDS: D5 LR IV SOLUTION 1,000 ML IV SCH (21:39)
[2019-03-07 22:15] VITALS: BP 144/97
[2019-03-07 23:15] VITALS: BP 162/95
[2019-03-08] VITALS (75 sets, daily range): BP systolic 110–174; BP diastolic 58–114
[2019-03-08] MEDS: MISOPROSTOL 100 MCG (CYTOTEC) TAB PV SCH (01:23)
[2019-03-08] MEDS: D5 LR IV SOLUTION 1,000 ML IV SCH ×2 (04:39→11:39)
[2019-03-08] MEDS ORDERED: OXYTOCIN PRE-MIX DRIP 500 ML IV SCH (06:00)
--- NOTE | 2019-03-08 07:30 | NUR ---
THIS RN INTRODUCES SELF TO PT AND FAMILY. PHYSICAL ASSESSMENT COMPLETE, VSS. DISCUSS PLAN FO PT CARE. QUESTIONS ANSWERED. DENIES NEEDS. CALL LIGHT WITHIN REACH.
--- NOTE | 2019-03-08 08:33 | NUR ---
THIS RN CALLED DR URBANO'S RN TO OBTAIN RUBELLA STATUS. THIS RN WAS TRANSFERRED TO MEDICAL RECORDS. MEDICAL RECORDS WAS UNABLE TO FIND RUBELLA STATUS.
--- NOTE | 2019-03-08 09:25 | NUR ---
this rn called dr vizcaino with updated pt report. pitocin rate on 8, sve at 0900 1cm and thick. regular UC Q1.5-2 min. rating pain 4/10. pt not asking for pain med or epidural yet. bp good/stable at this time. no new orders. dr vizcaino wants to continue to increase pitocin rate.
--- NOTE | 2019-03-08 11:43 | NUR ---
dr vizcaino receives updated pt report. sve no change. UC Q 1.5 min. pitocinr ate on 14. rates pain 6, starting to breathe through UC. pt sates may want something for pain soon. dr vizcaino states she will come down to possible AROM. pt states she wants a dose of iv pain medicine right before dr BECERRA then will eventually want epidural after AROM.
[2019-03-08] MEDS: fentaNYL INJECTION 100 MCG/2 ML AMP IVP PRN ×2 (12:39→13:26)
--- NOTE | 2019-03-08 12:48 | NUR ---
this rn called dr vizcaino with current MVU of 310. rn and discuss MVU range. dr wants mvu range around above 200, shooting for about 260, not to exceed 300. rn will decrease pitocin rate slightly.
[2019-03-08] MEDS ORDERED: SUFENTA 0.6MCG/ML BUPIVA 0.125 100 ML ONE (13:36)
[2019-03-08] MEDS ORDERED: fentaNYL INJECTION 100 MCG/2 ML AMP ONE (13:42)
[2019-03-08] MEDS ORDERED: BUPIVACAINE 0.25% 30 ML (SENSORCAINE) VIAL ONE (13:42)
[2019-03-08] MEDS ORDERED: LACTATED RINGERS 1,000 ML IV SCH (14:18)
[2019-03-08] MEDS ORDERED: EPIDURAL (SUFENTA 0.6MCG/ML BUPIVA 0.125%) 100 ML BAG EPI PRN (14:30)
[2019-03-08] MEDS ORDERED: NALOXONE 0.4 MG/ML 1 ML (NARCAN) VIAL IV PRN ×2 (14:30)
[2019-03-08] MEDS ORDERED: diphenhydrAMINE 50 MG/ML INJ (BENADRYL) IV PRN (14:30)
[2019-03-08] MEDS ORDERED: METOCLOPRAMIDE INJ 10 MG/2 ML (REGLAN) IV PRN (14:30)
--- NOTE | 2019-03-08 14:30 | NUR ---
this rn updates dr vizcaino on pt report. sve /2, pt comfortable with epidural. uc pattern, fht described. no new orders received.
--- NOTE | 2019-03-08 16:36 | NUR ---
this rn updates dr vizcaino on pt report. sve /-2, mvu 240, uc 1.5-2 min apart, fht described, current BP. no new orders received.
[2019-03-08] MEDS: ONDANSETRON 4 MG/2 ML (SDV) Z0FRAN IV PRN ×2 (17:32→22:12)
--- NOTE | 2019-03-08 18:07 | NUR ---
this rn calls dr vizcaino to discuss pt report. sve no change, still 550/-2. MVU 180 currently with resting tone at 40 (at its lowest), upon palpation in between UC, abdomen palpates moderate. this rn does not feel comfortable continuing to increase pitocin due to high resting tone. current pitocin rate given. fht described. asked dr vizcaino if she thought the pt needed at break from pitocin for about an hour then restart as some physicians do. dr vizcaino wants to leave pitocin rate where it is and give the pt more time. dr vizcaino asked if rn thought the pt needed an FSE, rn denies need for FSE, rn is not having difficulty monitoring FHT.
[2019-03-08] MEDS ORDERED: FAMOTIDINE 20MG/2ML IV (PEPCID) ONE (22:47)
[2019-03-08] MEDS ORDERED: CITRIC ACID/SOB CIT (BICITRA) 30 ML UDC ONE (22:47)
--- NOTE | 2019-03-08 23:30 | History & Physical-OB ---
OB - Chief Complaint & HPI Date/Time Date of Admission: Date of Admission: Mar 07, 2019 at 20:02 Date seen by a Provider: Mar 08, 2019 Time Seen by a Provider: 12:30 Chief Complaint/History OB-Reason for Admission/Chief: Induction of Labor Hx : 3 Hx Para: 0 Expected Date of Delivery: Feb 26, 2020 Gestational Age in Weeks: 37 Gestational Age in Days: 1 Indication for induction: other (-induced hypertension) Admission Nurse Assessment Rev: Yes Allergies and Home Medications Allergies Uncoded Allergies: tape (Adverse Reaction, Unknown, 07/25/18) Home Medications B12/Levomefolate Calcium/B-6 1 Each Tablet, 1 EACH PO DAILY, (Reported) Buspirone HCl 10 Mg Tablet, 10 MG PO BID, (Reported) Dnv689/Iron Fumarate/FA/Dss 1 Each Tablet, 1 EACH PO DAILY, (Reported) Patient Home Medication List Home Medication List Reviewed: Yes OB - History Hx of Present Care: Yes Ultrasounds: Normal mid trimester US Obstetrical Complications: Gestational Hypertension Medical Complications: None Delivery History Adverse Rxn to Tranfusion: No Patient Past Medical History anxiety Social History/Family History HIV/AIDS: No Recent Infectious Disease Expo: No Sexually Transmitted Disease: No Alcohol Use: Denies Use Recreational Drug Use: No 2nd Hand Smoke Exposure: No Immunizations Hepatitis A: Yes Hepatitis B: Yes Tetanus Booster (TDap): Less than 5yrs Date of Influenza Vaccine: Jan 31, 2019 OB - Admission Exam Physical Exam Vitals: Vital Signs 03/08/19 03/08/19 03/08/19 18:15 22:15 22:30 Temp 37.6 Pulse 93 Resp 16 B/P (MAP) 147/84 (105) Pulse Ox 98 O2 Delivery Room Air HEENT: NCAT Heart: Rhythm Normal Lungs: Clear Abdomen: Gravid Extremities: Normal Reflexes: Normal Cervical Dilatation: 7cm Effacement: 75% Station: -2 Membranes: Ruptured Amniotic Fluid: Clear Heart Rate: 130's Accelerations: Accelerations Present Decelerations: Early Decelerations Short Term Variability: Present Skilled Nursing Variability: Average (6-25) Contractions on Admission: None OB - Assessment/Plan/Diagnosis Assessment Admission Dx induced hypertension at 37 1/7 wga here for induction. Admission Status: Inpatient Order (span 2 midnights) Reason for Inpatient Admission: Induction of labor. Plan Induction Method: per Pitocin Protocol ALVA URBANO MD Mar 08, 2019 23:30 POS
[2019-03-09] VITALS (15 sets, daily range): BP systolic 127–179; BP diastolic 63–92
[2019-03-09] MEDS ORDERED: ACETAMINOPHEN 500 MG TAB (TYLENOL) ONE (00:33)
[2019-03-09] MEDS ORDERED: WATER (STERILE) FOR INJECTION 20 ML ONE (00:33)
[2019-03-09] MEDS ORDERED: AMPICILLIN FOR IV USE 2,000 MG VIAL ONE (00:33)
[2019-03-09] MEDS ORDERED: AMPICILLIN FOR IV USE 2,000 MG in WATER (STERILE) FOR INJECTION 14.8 ML IV ONE (01:00)
[2019-03-09] MEDS ORDERED: ACETAMINOPHEN 500 MG TAB (TYLENOL) PO ONE (01:00)
--- NOTE | 2019-03-09 01:10 | NUR ---
present at time of temp assessment and notified of 104.4 dai green questioned if physician desired a/b treatment of ampicillin or any form of a/b treatment to continue after delivery and physician denied wanting treatment continued.
[2019-03-09] MEDS ORDERED: OXYTOCIN PRE-MIX DRIP 500 ML IV SCH (01:33)
--- NOTE | 2019-03-09 01:39 | OB Labor & Delivery Record ---
Vag Delivery Note Vag Delivery Note Date of Delivery: 03/09/19 Preoperative Diagnosis: Estela Kwok is a (28 /Para 3 / 0,Gestational Age (wks)37with [] Postoperative Diagnosis: Same Surgeon: ALVA URBANO Page Designer: [none] Anesthesia: [epidural] Delivery Type: [] Findings: [] Viable [female] infant, apgars [8/9], weight [6 pounds 4 ounce] Lacerations: Intact placenta with 3 vessel cord. No nuchal cord, body cord or shoulder dystocia Estimated Blood Loss: [250] ml Complications: None Condition: Stable Description of Procedure: The patient is a 28 year old female who presented [for induction of labor]. She was admitted and informed consent was obtained. Her labor course was remarkable for [persistent OP and maternal fever] She progressed to complete dilatation and began to push. She was then set up for delivery. The 's head was delivered atraumatically in the [OA] position. The shoulders and remainder of the infant's body were then delivered without difficulty. Upon delivery, the head was held below the level of the perineum and the mouth and nares were bulb suctioned. The cord was doubly clamped and cut after 60 seconds on maternal abdomen. An intact placenta with 3-vessel cord delivered via Thelma and there was found to be minimal bleeding.~ Vigorous fundal massage was performed and the fundus was found to be firm. IV oxytocin was given. Examination of the vagina and perineum revealed no lacerations. Following the repair, sponge, instrument and needle counts were correct. Mom and baby were both in stable condition in the labor suite. Vitals - Labs Vital Signs - I&O Vital Signs Date Time Temp Pulse Resp B/P (MAP) Pulse Ox O2 Delivery O2 Flow Rate FiO2 03/09/19 00:30 39.2 122 143/76 (98) Room Air 03/09/19 00:15 116 136/66 (89) Room Air 03/09/19 00:00 Room Air 03/08/19 23:45 Room Air 03/08/19 23:30 Room Air 03/08/19 23:15 Room Air 03/08/19 23:00 Room Air 03/08/19 22:45 117 135/82 (99) 99 Room Air 03/08/19 22:30 93 147/84 (105) 98 Room Air 03/08/19 22:15 37.6 110 151/80 (103) 99 Room Air 03/08/19 22:00 130 100 Room Air 03/08/19 21:45 89 136/80 (98) 99 Room Air 03/08/19 21:30 88 143/92 (109) 99 Room Air 03/08/19 21:15 109 136/91 (106) 99 Room Air 03/08/19 21:00 104 99 Room Air 03/08/19 20:45 37.0 90 144/83 (103) 98 Room Air 03/08/19 20:30 113 142/85 (104) Room Air 03/08/19 20:15 88 142/81 (101) Room Air 03/08/19 20:00 83 136/80 (98) Room Air 03/08/19 19:45 85 135/92 (106) Room Air 03/08/19 19:30 36.1 86 134/73 (93) Room Air 03/08/19 19:15 90 133/82 (99) Room Air 03/08/19 19:00 75 143/83 (103) Room Air 03/08/19 18:45 88 139/82 (101) Room Air 03/08/19 18:30 89 141/89 (106) Room Air 03/08/19 18:15 81 16 131/82 (98) Room Air 03/08/19 18:00 37.0 96 142/69 (93) Room Air 03/08/19 17:45 86 145/76 (99) Room Air 03/08/19 17:30 96 149/90 (109) Room Air 03/08/19 17:15 76 135/83 (100) Room Air 03/08/19 17:00 75 134/81 (98) Room Air 03/08/19 16:45 36.3 82 16 142/75 (97) Room Air 03/08/19 16:30 71 97 Room Air 03/08/19 16:15 69 98 Room Air 03/08/19 16:00 67 98 Room Air 03/08/19 15:45 81 123/68 (86) Room Air 03/08/19 15:30 90 144/84 (104) Room Air 03/08/19 15:15 77 110/59 (76) 99 Room Air 03/08/19 15:00 80 115/66 (82) Room Air 03/08/19 14:55 93 129/71 (90) 99 Room Air 03/08/19 14:50 72 119/70 (86) 98 Room Air 03/08/19 14:45 82 114/67 (83) Room Air 03/08/19 14:40 83 113/70 (84) Room Air 03/08/19 14:35 88 111/67 (82) Room Air 03/08/19 14:30 36.4 102 18 120/66 (84) Room Air 03/08/19 14:25 96 120/66 (84) 98 Room Air 03/08/19 14:23 110 120/62 (81) 99 Room Air 03/08/19 14:20 85 124/58 (80) 99 Room Air 03/08/19 14:17 109 127/65 (85) 99 Room Air 03/08/19 14:15 84 124/60 (81) Room Air 03/08/19 14:11 84 127/60 (82) 98 Room Air 03/08/19 14:08 83 138/65 (89) 98 Room Air 03/08/19 14:00 84 22 156/71 (99) Room Air 03/08/19 13:45 71 146/88 (107) Room Air 03/08/19 13:30 79 144/91 (108) Room Air 03/08/19 13:15 85 168/114 (132) Room Air 03/08/19 13:00 Room Air 03/08/19 12:45 Room Air 03/08/19 12:30 Room Air 03/08/19 12:15 37.0 83 138/91 (107) Room Air 03/08/19 12:00 83 20 125/91 (102) Room Air 03/08/19 11:45 93 169/99 (122) Room Air 03/08/19 11:30 77 145/89 (107) Room Air 03/08/19 11:15 84 132/102 (112) Room Air 03/08/19 11:00 75 139/83 (101) Room Air 03/08/19 10:45 75 138/85 (102) Room Air 03/08/19 10:30 84 18 139/104 (116) Room Air 03/08/19 10:15 36.8 86 144/88 (106) Room Air 03/08/19 10:00 82 142/91 (108) Room Air 03/08/19 09:45 75 150/108 (122) Room Air 03/08/19 09:30 90 143/92 (109) Room Air 03/08/19 09:15 99 152/85 (107) Room Air 03/08/19 09:00 74 129/94 (106) Room Air 03/08/19 08:45 36.7 Room Air 03/08/19 08:30 67 16 127/67 (87) Room Air 03/08/19 08:15 67 134/78 (96) Room Air 03/08/19 08:00 75 151/94 (113) Room Air 03/08/19 07:45 36.2 80 149/99 (116) Room Air 03/08/19 07:30 76 135/88 (104) Room Air 03/08/19 07:15 78 18 138/83 (101) Room Air 03/08/19 06:57 73 16 174/100 (124) Room Air 03/08/19 06:40 76 16 164/95 (118) Room Air 03/08/19 06:25 77 16 146/91 (109) Room Air 03/08/19 06:10 76 16 145/87 (106) Room Air 03/08/19 05:55 71 16 156/104 (121) Room Air 03/08/19 05:15 36.1 68 16 146/101 (116) Room Air 03/08/19 04:15 77 16 145/89 (107) Room Air 03/08/19 03:15 66 16 137/65 (89) Room Air 03/08/19 02:15 93 16 135/72 (93) Room Air I & O 03/09/19 07:00 Intake Total 1000 ml Balance 1000 ml ALVA URBANO MD Mar 09, 2019 01:39 POS
[2019-03-09] MEDS ORDERED: IBUPROFEN 600 MG (MOTRIN) TAB PO ONE (01:41)
[2019-03-09] MEDS ORDERED: BENZOCAINE/MENTHOL (DERMOPLAST) 60 ML CAN TP ONE (01:41)
[2019-03-09] MEDS: WITCH HAZEL(TUCKS) 40 EA JAR TOP PRN (01:43)
[2019-03-09] MEDS: IBUPROFEN 600 MG (MOTRIN) TAB PO SCH ×4 (01:43→21:10)
[2019-03-09] MEDS ORDERED: BENZOCAINE/MENTHOL (DERMOPLAST) 60 ML CAN TP PRN (01:45)
[2019-03-09] MEDS ORDERED: MEASLES,MUMPS,RUBELLA 1 EA INJ SQ ONE (01:45)
--- NOTE | 2019-03-09 03:15 | NUR ---
Pt to bedpan, first void since delivery, pericare pad applied, epidural cath removed, tip in tact, site wnl, left o/a asymptomatic per pt report. pt to and transferred to pp room 309, oriented to call system and surroundings, this rn remains pts rn. will cont to monitor.
[2019-03-09] MEDS ORDERED: CATHETER FLUSH 10 ML SYR IV SCH (06:00)
[2019-03-09] MEDS: DOCUSATE SODIUM 100 MG (COLACE) CAP PO SCH ×2 (08:29→21:10)
--- NOTE | 2019-03-09 08:40 | NUR ---
PT IN BED, HOLDING SKIN TO SKIN. S/O SLEEPING AT THE BEDSIDE. VS OBTAINED. MEDS GIVEN PO; SEE EMAR FOR FURTHER. INITIAL SHIFT ASSESSMENT COMPLETED; SEE INTERVENTION FOR FURTHER. IV DC'D; SEE INTERVENTION. SHOWER SET UP. POC REVIEWED WITH PT, PT VERBALIZES UNDERSTANDING AND DENIES ANY FURTHER NEEDS AT THIS TIME. CALL LIGHT WITHIN REACH.
[2019-03-09] MEDS: ACETAMINOPHEN 500 MG TAB (TYLENOL) PO SCH ×2 (13:26→19:46)
--- NOTE | 2019-03-09 13:28 | NUR ---
PT UP IN ROOM. VISITORS PRESENT. VS OBTAINED. TYLENOL GIVEN PO; SEE EMAR FOR FURTHER. NO NEEDS VOICED.
--- NOTE | 2019-03-09 17:06 | NUR ---
PT TO NURSERY VIEWING WINDOW TO WATCH 'S FIRST BATH.
--- NOTE | 2019-03-10 02:00 | NUR ---
daylight savings, lose an hour.
[2019-03-10 02:12] VITALS: BP 112/60
[2019-03-10] MEDS: IBUPROFEN 600 MG (MOTRIN) TAB PO SCH ×4 (02:14→21:00)
[2019-03-10] MEDS: ACETAMINOPHEN 500 MG TAB (TYLENOL) PO SCH ×4 (02:14→20:59)
[2019-03-10 05:30] LABS: BASOPHILS % (AUTO) 0 % (0-10); EOSINOPHILS # (AUTO) 0.2 10^3/uL (0.0-0.3); EOSINOPHILS % (AUTO) 1 % (0-10); HEMATOCRIT 32 % (35-52); HEMOGLOBIN 10.5 G/DL (11.5-16.0); LYMPHOCYTES # (AUTO) 2.8 X 10^3 (1.0-4.0); LYMPHOCYTES % (AUTO) 14 % (12-44); MEAN CORPUSCULAR HGB CONC 33 G/DL (32-36); MEAN CORPUSCULAR VOLUME 90 FL (80-99); MEAN PLATELET VOLUME 10.7 FL (7.4-10.4); MONOCYTES % (AUTO) 5 % (0-12); NEUTROPHILS # (AUTO) 16.4 X 10^3 (1.8-7.8); NEUTROPHILS % (AUTO) 81 % (42-75); PLATELET COUNT 270 10^3/uL (130-400); RED CELL DISTRIBUTION WIDTH 13.2 % (10.0-14.5); WHITE BLOOD COUNT 20.3 10^3/uL (4.3-11.0)
[2019-03-10 05:38] LABS: MEAN CORPUSCULAR HEMOGLOBIN 29 PG (25-34)
[2019-03-10 07:43] VITALS: BP 139/78
--- NOTE | 2019-03-10 08:05 | NUR ---
Dr Macedo to see pt and review plan of care with pt.
--- NOTE | 2019-03-10 08:16 | Progress Note ---
Subjective Subjective/Events-last exam Infant nursing well with nipple shield. Edema of lower extremities. Up and moving around. Bleeding slower. Pain controlled. Objective Exam Last Set of Vital Signs Vital Signs Date Time Temp Pulse Resp B/P (MAP) Pulse Ox O2 Delivery O2 Flow Rate FiO2 03/10/19 07:43 37.2 95 18 139/78 (98) 97 Room Air Capillary Refill : Less Than 3 Seconds I&O l Intake and Output 03/10/19 00:00 Intake Total 1000 ml Balance 1000 ml Intake IV Total 1000 ml General: Alert, Oriented X3 HEENT: Atraumatic Heart: Regular Rate Abdomen: Other (fundus at umbilicus) Extremities: Other (edema) Results/Procedures Lab Laboratory Tests 03/10/19 04:50: White Blood Count 20.3H, Red Blood Count 3.56L, Hemoglobin 10.5L, Hematocrit 32L , Mean Corpuscular Volume 90, Mean Corpuscular Hemoglobin 29, Mean Corpuscular Hemoglobin Concent 33, Red Cell Distribution Width 13.2, Platelet Count 270, Mean Platelet Volume 10.7H, Neutrophils (%) (Auto) 81H, Lymphocytes (%) (Auto) 14, Monocytes (%) (Auto) 5, Eosinophils (%) (Auto) 1, Basophils (%) (Auto) 0, Neutrophils # (Auto) 16.4H, Lymphocytes # (Auto) 2.8, Monocytes # (Auto) 1.0, Eosinophils # (Auto) 0.2, Basophils # (Auto) 0.0 Assessment/Plan Assessment/Plan Admission Dx Admission Status: Inpatient Order (span 2 midnights) (1) induced hypertension Status: Acute Assessment & Plan: Post- day 1 from at 37 2/7 wga for PIH. Blood pressure improved. White count 20,000 likely reactive. No more fevers. No other symptoms of infection. Clinical Quality Measures DVT/VTE Risk/Contraindication: Risk Factor Score Per Nursin RFS Level Per Nursing on Admit: 1=Low/No VTE PPX ALVA URBANO MD Mar 10, 2019 08:16 POS
[2019-03-10] MEDS: DOCUSATE SODIUM 100 MG (COLACE) CAP PO SCH ×2 (09:02→21:00)
--- NOTE | 2019-03-10 14:00 | Anesthesia-Regional Post-Op ---
Regional Patient Condition Mental Status: Alert, Oriented x3 Circulation: Same as Pre-Op Headache: Absent Sensation: Full Recovery Motor Block: Absent Post Op Complications Complications None Follow Up Care/Instructions Patient Instructions None needed. Anesthesia/Patient Condition Patient is doing well, no complaints, stable vital signs, no apparent adverse anesthesia problems. No complications reported per nursing. MAGDALENA VASQUEZ CRNA Mar 10, 2019 14:00 POS
[2019-03-10] MEDS: WITCH HAZEL(TUCKS) 40 EA JAR TOP PRN (14:12)
[2019-03-10 15:02] VITALS: BP 111/65
[2019-03-10 21:00] VITALS: BP 142/86
--- NOTE | 2019-03-10 23:00 | NUR ---
pt getting ready to take a shower at this time, denies needs.
--- NOTE | 2019-03-11 00:44 | NUR ---
pt sitting up in bed holding . denies needs at this time.
[2019-03-11] MEDS: ACETAMINOPHEN 500 MG TAB (TYLENOL) PO SCH ×2 (03:12→11:04)
[2019-03-11 03:13] VITALS: BP 141/97
[2019-03-11] MEDS: IBUPROFEN 600 MG (MOTRIN) TAB PO SCH ×2 (03:13→08:30)
[2019-03-11 08:29] VITALS: BP 160/98
[2019-03-11] MEDS: DOCUSATE SODIUM 100 MG (COLACE) CAP PO SCH (08:31)
--- NOTE | 2019-03-11 08:40 | NUR ---
Dr amin notified of +Homans sign rt leg. BP's noted
--- NOTE | 2019-03-11 08:45 | NUR ---
Dr Lemos to see patient in room. plan of care reviewed with pt.
[2019-03-11] MEDS ORDERED: IBUP-844 PO (08:51)
[2019-03-11 11:26] LABS: BASOPHILS % (AUTO) 0 % (0-10); EOSINOPHILS # (AUTO) 0.1 10^3/uL (0.0-0.3); EOSINOPHILS % (AUTO) 1 % (0-10); HEMATOCRIT 30 % (35-52); HEMOGLOBIN 9.9 G/DL (11.5-16.0); LYMPHOCYTES # (AUTO) 2.1 X 10^3 (1.0-4.0); LYMPHOCYTES % (AUTO) 15 % (12-44); MEAN CORPUSCULAR HEMOGLOBIN 30 PG (25-34); MEAN CORPUSCULAR HGB CONC 33 G/DL (32-36); MEAN CORPUSCULAR VOLUME 91 FL (80-99); MEAN PLATELET VOLUME 10.7 FL (7.4-10.4); MONOCYTES # (AUTO) 0.5 X 10^3 (0.0-1.0); MONOCYTES % (AUTO) 4 % (0-12); NEUTROPHILS # (AUTO) 11.2 X 10^3 (1.8-7.8); NEUTROPHILS % (AUTO) 80 % (42-75); PLATELET COUNT 281 10^3/uL (130-400); WHITE BLOOD COUNT 13.9 10^3/uL (4.3-11.0)
--- NOTE | 2019-03-11 12:16 | NUR ---
US/verbal received from yesenia result
--- NOTE | 2019-03-11 12:50 | Diagnostic Imaging Report ---
PROCEDURE: US right lower extremity venous. TECHNIQUE: Multiple real-time grayscale images were obtained over the right lower extremity in various projections. Additional spectral analysis and color Doppler duplex images were also obtained. INDICATION: Edema, positive Homans sign. COMPARISON: None available. FINDINGS: Normal flow, compression, and augmentation within the visualized deep venous structures of the right lower extremity. IMPRESSION: No evidence of a deep venous thrombosis within the right lower extremity. Dictated by: Dictated on workstation # [id number]
--- NOTE | 2019-03-11 13:35 | NUR ---
dismissal instructions given, verbalizes understanding. reviewed follow up appointment & Rx's. signature page signed, placed on chart.
--- NOTE | 2019-03-11 14:20 | NUR ---
pt ambulated to private vehicle with HALEIGH Hobbs, and mother @ side. infant secured in rear facing car seat. pt stable upon dismissal.
--- NOTE | 2019-03-12 14:42 | Short Stay Summary ---
Discharge Summary Hospital Course Final Diagnosis: s/p ; IOL for PIH Hospital Course Date of Admission: Mar 07, 2019 at 20:02 Admission Diagnosis : 1. 37wk IOL for PIH Family Physician/Provider: Sheila Macedo MD Date of Discharge: 03/11/19 Discharge Diagnoses: 1. 37wk IOL for PI 2. s/p 3. fever at deliver - resolved 4. LE edema with +Светлана's sign RLE Hospital Course: Routine post- course. RLE venous US done, negative. Leukocytosis after delivery, improved on repeat. Labs and Pending Lab Test: Laboratory Tests 03/10/19 04:50: White Blood Count 20.3H, Red Blood Count 3.56L, Hemoglobin 10.5L, Hematocrit 32L, Mean Corpuscular Volume 90, Mean Corpuscular Hemoglobin 29, Mean Corpuscular Hemoglobin Concent 33, Red Cell Distribution Width 13.2, Platelet Count 270, Mean Platelet Volume 10.7H, Neutrophils (%) (Auto) 81H, Lymphocytes (%) (Auto) 14, Monocytes (%) (Auto) 5, Eosinophils (%) (Auto) 1, Basophils (%) (Auto) 0, Neutrophils # (Auto) 16.4H, Lymphocytes # (Auto) 2.8, Monocytes # (Auto) 1.0, Eosinophils # (Auto) 0.2, Basophils # (Auto) 0.0 03/11/19 11:15: White Blood Count 13.9H, Red Blood Count 3.31L, Hemoglobin 9.9L, Hematocrit 30L, Mean Corpuscular Volume 91, Mean Corpuscular Hemoglobin 30, Mean Corpuscular Hemoglobin Concent 33, Red Cell Distribution Width 13.0, Platelet Count 281, Mean Platelet Volume 10.7H, Neutrophils (%) (Auto) 80H, Lymphocytes (%) (Auto) 15, Monocytes (%) (Auto) 4, Eosinophils (%) (Auto) 1, Basophils (%) (Auto) 0, Neutrophils # (Auto) 11.2H, Lymphocytes # (Auto) 2.1, Monocytes # (Auto) 0.5, Eosinophils # (Auto) 0.1, Basophils # (Auto) 0.0 Home Meds Active Reported Foltx Tablet (B12/Levomefolate Calcium/B-6) 1 Each Tablet 1 Each PO DAILY Buspirone HCl 10 Mg Tablet 10 Mg PO BID 19 Tablet (Qtt377/Iron Fumarate/FA/Dss) 1 Each Tablet 1 Each PO DAILY Assessment/Pt Instructions Follow up with Dr. Macedo in 1 wk for BP check; 6 wk for visit. Discharge Instructions Discharge Diet: No Restrictions Activity as Tolerated: Yes Discharge Physical Examination General Appearance: Alert, Oriented X3, Cooperative Extremities: Other (petra LE edema; +Светлана's RLE) Psych/Mental Status: Mental Status NL Allergies: Uncoded Allergies: tape (Adverse Reaction, Unknown, 07/25/18) Discharge Summary Date of Admission Mar 07, 2019 at 20:02 Date of Discharge Clinical Quality Measures DVT/VTE Risk/Contraindication: Risk Factor Score Per Nursin RFS Level Per Nursing on Admit: 1=Low/No VTE PPX GI PAVON DO Mar 11, 2019 08:54 POS
--- OUTSIDE RECORDS SUMMARY | 2019-03-31 16:11 | XMS REPORT ---
Author Author PEG GALAN POS Organization [facility] SP Address [address] [place] [address] SP Care Team Providers Care Processor Inspector Name Role Phone POS ADAMAMICHELLEY Unavailable SP PROBLEMS Type Condition ICD9-CM Code JVT53-NO Code Onset Dates Condition S tatus SNOMED POS Problem Missed menses N92.6 Active 752876 00 POS ALLERGIES No Information ENCOUNTERS Encounter Location Date Diagnosis POS [address] [address] 22 SP [address] [address] 15 SP [address] [address] 08 SP [address] [address] 01 SP [address] [address] 25 SP [address] [address] 11 SP [address] [address] 27 SP 2019 SP [facility] [address] [address] 13 SP [address] [address] 29 SP 2019 Other specified related condit ions, unspecified trimester SP and Supervision of other normal Z34.80 [facility] [address] [id number] [address] [place] [address] SP Dec, Other specified re lated conditions, unspecified SP O26.899 ; Supervision of other normal Z34.80 and 28 weeks gestation of Z3A.28 [facility] [place] [address] [address] 29 SP 2018 SP [facility] [address] [address] 22 SP 2018 SP [facility] [address] [address] 20 SP 2018 SP [facility] [address] [facility]NOTE 3] [id number] [address] [place] [address] SP Dec, Supervision of other normal Z34.80 and 26 weeks SP of Z3A.[address] [address] 02 SP 2018 Supervision of other normal Z3 4.80 and 24 weeks gestation of SP Z3A.24 [facility] [address] [address] 25 SP [address] [address] 24 SP [address] [address] 12 SP 2018 Supervision of other normal Z3 4.80 and 20 weeks gestation of SP Z3A.[address] [address] 05 SP 2019 Supervision of other normal Z3 4.80 ; 20 weeks gestation of SP Z3A.20 and Dysuria R30.[address] [address] 13 SP 2018 SP [facility] [address] [address] 05 SP 2018 Supervision of other normal Z3 4.80 and 15 weeks gestation of SP Z3A.15 [facility] [place] [address] [place] [address] September, SP [facility] [address] [facility]NOTE 3] [id number] [address] [place] [address] SP September, SP [facility] [address] [address] 23 SP 2018 SP [facility] [address] [address] [place] [address] 07 Sep, 2018 Supervision of SPother normal Z34.80 and 12 weeks gestation of Z3A.12 [facility] [address] [address] 26 SP 2019 Supervision of other normal Z3 4.80 and 10 weeks gestation of SP Z3A.[address] [address] 15 SP 2019 SP [facility] [address] [address] 12 SP 2018 Supervision of other normal Z3 4.80 and 8 weeks gestation of SP Z3A.[address] [address] 10 SP 2019 Unspecified abdominal pain R10.9 and Oth er specified related SP unspecified trimester O26.[address] [address] 10 SP 2019 Unspecified abdominal pain R10.9 and Oth er specified related SP unspecified trimester O26.[address] [address] 05 SP [address] [address] 01 SP [address] [address] 29 SP 2019 Unspecified abdominal pain R10.9 and Oth er specified related SP unspecified trimester O26.[address] [address] 27 SP 2019 Miscarried within last 12 months Z87.[address] [address] 25 SP [address] [address] 22 SP 2019 Threatened miscarriage O20.0 SP [facility] [address] [facility]NOTE 3] [id number] [address] [place] [address] SP Jul, Other specified re lated conditions, first trimester SP and Pelvic and perineal pain R10.[address] [facility] [address] [address] 20 SP 2019 Missed menses N92.6 SP IMMUNIZATIONS No Known Immunizations SOCIAL HISTORY Never Assessed REASON FOR VISIT PLAN OF CARE VITAL SIGNS MEDICATIONS Unknown Medications RESULTS No Results PROCEDURES No Known procedures INSTRUCTIONS MEDICATIONS ADMINISTERED No Known Medications MEDICAL (GENERAL) HISTORY Type Description Date POS Surgical History shoulder replacement SP Hospitalization History Surgery(s) only SP
--- OUTSIDE RECORDS SUMMARY | 2019-03-31 16:11 | XMS REPORT ---
Author Author ALVA URBANO POS Organization [facility] Address [address] [place] [address] SP Care Team Providers Care Aircraft Avionics Technician Name Role Phone POS ALVA URBANO Unavailable SP PROBLEMS Type Condition ICD9-CM Code MDH68-SZ Code Onset Dates Condition S tatus SNOMED POS Problem Missed menses N92.6 Active 222804 00 POS ALLERGIES No Information ENCOUNTERS Encounter Location Date Diagnosis POS [address] [address] 22 SP [address] [address] 15 SP [address] [address] 08 SP [address] [address] 01 SP [address] [address] 25 SP [address] [address] 11 SP [address] [address] 27 SP [address] [address] 13 SP 2019 Supervision of other normal Z3 4.80 ; 30 weeks gestation of SP Z3A.30 and Encounter for immunization Z23 [address] [address] 04 SP [address] [address] 29 SP 2019 Other specified related condit ions, unspecified trimester SP and Supervision of other normal Z34.80 [facility] [address] [place] [id number] [address] [place] [address] SP Dec, Other specified re lated conditions, unspecified SP O26.899 ; Supervision of other normal Z34.80 and 28 weeks gestation of Z3A.[address] [address] 29 SP [address] [address] 22 SP 2018 SP [facility] [address] [address] 20 SP 2018 SP [place] [address] [address] [facility] [id number] [address] [place] [address] SP Dec, Supervision of other normal Z34.80 and 26 weeks SP of Z3A.[address] [address] 02 SP 2018 Supervision of other normal Z3 4.80 and 24 weeks gestation of SP Z3A.[address] [address] 25 SP [address] [address] 24 SP [address] [address] 12 SP 2019 Supervision of other normal Z3 4.80 and 20 weeks gestation of SP Z3A.[address] [address] 05 SP 2019 Supervision of other normal Z3 4.80 ; 20 weeks gestation of SP Z3A.20 and Dysuria R30.[address] [address] 13 SP [address] [address] 05 SP 2019 Supervision of other normal Z3 4.80 and 15 weeks gestation of SP Z3A.15 [facility] [address] [place] [address] September, SP [facility] [place] [address] [facility] [id number] [address] [place] [address] SP September, SP [facility] [place] [address] [address] 23 SP 2018 SP [facility] [place] [address] [place] [address] 07 Sep, 2018 Supervision of SPother normal Z34.80 and 12 weeks gestation of Z3A.12 [facility] [address] [address] 26 SP 2018 Supervision of other normal Z3 4.80 and 10 weeks gestation of SP Z3A.10 [facility] [address] [address] 15 SP 2018 SP [facility] [address] [address] 12 SP 2018 Supervision of other normal Z3 4.80 and 8 weeks gestation of SP Z3A.08 [facility] [address] [address] 10 SP 2018 Unspecified abdominal pain R10.9 and Oth er specified related SP unspecified trimester O26.899 [facility] [place] [address] [address] 10 SP 2018 Unspecified abdominal pain R10.9 and Oth er specified related SP unspecified trimester O26.899 [facility] [place] [address] [address] 05 SP 2019 SP [facility] [address] [address] 01 SP 2019 SP [facility] [place] [address] [address] 29 SP 2018 Unspecified abdominal pain R10.9 and Oth er specified related SP unspecified trimester O26.[address] [address] 27 SP 2019 Miscarried within last 12 months Z87.[address] [address] 25 SP [address] [address] 22 SP 2019 Threatened miscarriage O20.0 SP [facility] [address] [facility] [id number] [address] [place] [address] SP Jul, Other specified re lated conditions, first trimester SP and Pelvic and perineal pain R10.[address] [address] 20 2018 Missed menses N92.6 SP IMMUNIZATIONS No Known Immunizations SOCIAL HISTORY Never Assessed REASON FOR VISIT stat lab results PLAN OF CARE VITAL SIGNS MEDICATIONS Unknown Medications RESULTS No Results PROCEDURES No Known procedures INSTRUCTIONS MEDICATIONS ADMINISTERED No Known Medications MEDICAL (GENERAL) HISTORY Type Description Date POS Surgical History shoulder replacement SP Hospitalization History Surgery(s) only SP
--- OUTSIDE RECORDS SUMMARY | 2019-03-31 16:11 | XMS REPORT ---
Author Author ALVA URBANO POS Organization [facility] Address [address] [place] [address] SP Care Team Providers Care Immigration Lawyer Name Role Phone POS ALVA URBANO Unavailable SP PROBLEMS Type Condition ICD9-CM Code ZES10-PG Code Onset Dates Condition S tatus SNOMED POS Problem Missed menses N92.6 Active 612232 00 POS ALLERGIES No Information ENCOUNTERS Encounter Location Date Diagnosis POS [address] [address] 22 SP [address] [address] 15 SP [address] [address] 08 SP [address] [address] 01 SP [address] [address] 25 SP [address] [address] 11 SP [address] [address] 27 SP [address] [address] 13 SP [address] [address] 29 SP 2019 Other specified related condit ions, unspecified trimester SP and Supervision of other normal Z34.80 [facility] [address] [facility] [id number] [address] [place] [address] SP Dec, Other specified re lated conditions, unspecified SP O26.899 ; Supervision of other normal Z34.80 and 28 weeks gestation of Z3A.28 [facility] [address] [address] 29 SP 2018 SP [facility] [address] [address] 22 SP 2018 SP [facility] [address] [address] 20 SP 2018 [facility] [place] [address] [facility] [id number] [address] [place] [address] SP Dec, Supervision of other normal Z34.80 and 26 weeks SP of Z3A.[address] [address] 02 SP 2018 Supervision of other normal Z3 4.80 and 24 weeks gestation of SP Z3A.[address] [address] 25 SP [address] [address] 24 SP [address] [address] 12 SP 2019 Supervision of other normal Z3 4.80 and 20 weeks gestation of SP Z3A.[address] [address] 05 SP 2019 Supervision of other normal Z3 4.80 ; 20 weeks gestation of SP Z3A.20 and Dysuria R30.[address] [address] 13 SP 2018 SP [facility] [address] [address] 05 SP 2019 Supervision of other normal Z3 4.80 and 15 weeks gestation of SP Z3A.15 [facility] [place] [address] [place] [address] September, SP [facility] [place] [address] [facility] [id number] [address] [place] [address] SP September, SP [facility] [address] [address] 23 SP 2018 SP [facility] [address] [address] [place] [address] September, Supervision of SPother normal Z34.80 and 12 weeks gestation of Z3A.12 [facility] [address] [address] 26 SP 2019 Supervision of other normal Z3 4.80 and 10 weeks gestation of SP Z3A.10 [facility] [address] [address] 15 SP 2019 SP [facility] [address] [address] 12 SP 2019 Supervision of other normal Z3 4.80 and 8 weeks gestation of SP Z3A.08 [facility] [address] [address] 10 SP 2019 Unspecified abdominal pain R10.9 and Oth er specified related SP unspecified trimester O26.[address] [address] 10 SP 2019 Unspecified abdominal pain R10.9 and Oth er specified related SP unspecified trimester O26.899 [facility] [place] [address] [address] 05 SP 2019 SP [facility] [place] [address] [address] 01 SP 2019 SP [facility] [address] [address] 29 SP 2019 Unspecified abdominal pain R10.9 and Oth er specified related SP unspecified trimester O26.[address] [address] 27 SP 2019 Miscarried within last 12 months Z87.59 [facility] [place] [address] [address] 25 SP 2019 SP [facility] [place] [address] [address] 22 SP 2019 Threatened miscarriage O20.0 SP [facility] [address] [facility] [id number] [address] [place] [address] SP Jul, Other specified re lated conditions, first trimester SP and Pelvic and perineal pain R10.[address] [address] 20 SP 2019 Missed menses N92.6 SP IMMUNIZATIONS No Known Immunizations SOCIAL HISTORY Never Assessed REASON FOR VISIT PLAN OF CARE VITAL SIGNS MEDICATIONS Unknown Medications RESULTS No Results PROCEDURES No Known procedures INSTRUCTIONS MEDICATIONS ADMINISTERED No Known Medications MEDICAL (GENERAL) HISTORY Type Description Date POS Surgical History shoulder replacement SP Hospitalization History Surgery(s) only SP
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
== END 2019-03-11 14:20 | disposition home or self-care (01) | DRG 806 ==
LOC: LDRP 20:02
PROVIDERS: ADMIT Family Medicine; ATTEND Family Medicine
PROC: 3E033VJ Introduction of Other Hormone into Peripheral Vein, Percutaneous Approach (ICD-10-PCS; 2019-03-07)
PROC: 10E0XZZ Delivery of Products of Conception, External Approach (ICD-10-PCS; principal; 2019-03-09)
DX: O13.4 Gestational [pregnancy-induced] hypertension without significant proteinuria, complicating childbirth (principal); O75.2 Pyrexia during labor, not elsewhere classified; O64.0XX0 Obstructed labor due to incomplete rotation of fetal head, not applicable or unspecified; O99.13 Other diseases of the blood and blood-forming organs and certain disorders involving the immune mechanism complicating the puerperium; D72.829 Elevated white blood cell count, unspecified; O99.344 Other mental disorders complicating childbirth; F41.9 Anxiety disorder, unspecified; R60.0 Localized edema; Z3A.37 37 weeks gestation of pregnancy; Z37.0 Single live birth
CPT/HCPCS: 36415; 85025; 86850; 86900; 86901; 88307

== ENCOUNTER → 2020-03-06 | Outpatient (CLI) | payer MEDICAID ==
[~2020-03-06] MED LIST changes: +B12/1TAB PO; +BUSP10TA95 PO; +IBUP-844 PO
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
== END ==
LOC: RAD FS 10:28
PROVIDERS: ATTEND Family Medicine
DX: S69.92XA Unspecified injury of left wrist, hand and finger(s), initial encounter (principal); X58.XXXA Exposure to other specified factors, initial encounter
CPT/HCPCS: 73110